=== PATIENT | male | born 1945 | race African-American/Black ===

== ENCOUNTER 2021-03-20 14:45 | Inpatient (IN) | payer OTHER, BC ==
[2021-03-20] MEDS ORDERED: ASPIRIN 81 MG CHEWABLE TABLETS PO ONE (15:48)
[2021-03-20] MEDS ORDERED: ASPIRIN 81 MG CHEWABLE TABLETS ONE (15:52)
[2021-03-20] MEDS ORDERED: HEPARIN NA (PORCINE) 5,000 UNITS/ML 1ML VIAL IVPUSH PRN ×2 (18:04)
[2021-03-20] MEDS ORDERED: HEPARIN NA (PORCINE) 5,000 UNITS/ML 1ML VIAL IVPUSH ONE ×2 (18:04→18:15)
[2021-03-20] MEDS ORDERED: ATORVASTATIN CA 80 MG TABLET (FP) PO ONE (18:04)
[2021-03-20] MEDS ORDERED: CLOPIDOGREL BISULFATE 300 MG TABLET PO ONE (18:04)
[2021-03-20] MEDS ORDERED: CLOPIDOGREL BISULFATE 300 MG TABLET ONE (18:22)
[2021-03-20] MEDS ORDERED: HEPARIN INFUSION - 25,000 UNITS/500 ML INFUS.BAG IVPB ONE (18:23)
[2021-03-20] MEDS ORDERED: HEPARIN NA (PORCINE) 5,000 UNITS/ML 1ML VIAL ONE (18:23)
[2021-03-20] MEDS: HEPARIN - 25,000 UNIT in SODIUM CHLORIDE 495 ML IV SCH (18:23)
[2021-03-20] MEDS ORDERED: ATORVASTATIN CA 80 MG TABLET (FP) ONE (18:23)
[2021-03-20 19:26] LABS: BASO % 0.4 % (0-2.0); EOS % 0.9 % (0-4.5); HEMATOCRIT 42.5 % (35.4-49); LYMPH % 13.1 % (8-40); MCH 29.8 pg (25.7-33.7); MEAN CELL VOLUME 90.5 fl (80-96); MEAN PLT VOLUME 11.3 fl (7.5-11.1); MONO % 4.7 % (3.8-10.2); NEUT % 80.9 % (42.8-82.8); PLATELET COUNT 186 K/MM3 (134-434); RBC 4.69 M/mm3 (4.00-5.60); RDW 15.2 % (11.9-15.9); WHITE BLOOD COUNT 8.4 K/mm3 (4.0-10.0)
[2021-03-20 19:32] LABS: INR 1.03 (0.83-1.09); PROTHROMBIN TIME (PATIENT) 12.6 SEC (9.7-13.0)
[2021-03-20 19:34] LABS: ACTIVATED PTT 30.4 SECONDS (25.2-36.5)
[2021-03-20 19:43] LABS: CHLORIDE 101 mmol/L (98-107); SODIUM 134 mmol/L (136-145)
[2021-03-20 19:45] LABS: CALCIUM 9.2 mg/dL (8.5-10.1)
[2021-03-20 19:46] LABS: ALBUMIN 4.4 g/dl (3.4-5.0); ANION GAP 13 MMOL/L (8-16); BLOOD UREA NITROGEN 28.1 mg/dL (7-18); CO2 20 mmol/L (21-32); GLUCOSE,RANDOM 166 mg/dL (74-106)
[2021-03-20 19:49] LABS: CREATININE 1.4 mg/dL (0.55-1.3); SGOT/AST 21 U/L (15-37); SGPT/ALT 41 U/L (13-61)
[2021-03-20 19:51] LABS: BILIRUBIN,TOTAL 0.8 mg/dL (0.2-1); TOT PROT 7.9 g/dl (6.4-8.2)
[2021-03-20 19:52] LABS: ALK PHOS 90 U/L (45-117)
[2021-03-20] MEDS ORDERED: LORazepam 2 MG/ML SDV VIAL IVPB ONE (20:18)
[2021-03-21 06:23] LABS: BASO % 0.5 % (0-2.0); EOS % 1.8 % (0-4.5); HEMATOCRIT 39.9 % (35.4-49); HEMOGLOBIN 13.3 GM/dL (11.7-16.9); MCH 29.8 pg (25.7-33.7); MCHC 33.3 g/dl (32.0-35.9); MEAN CELL VOLUME 89.4 fl (80-96); MEAN PLT VOLUME 10.1 fl (7.5-11.1); MONO % 7.7 % (3.8-10.2); PLATELET COUNT 169 K/MM3 (134-434); RBC 4.46 M/mm3 (4.00-5.60); RDW 15.3 % (11.9-15.9); WHITE BLOOD COUNT 7.5 K/mm3 (4.0-10.0)
[2021-03-21 06:46] LABS: ALBUMIN 3.8 g/dl (3.4-5.0); BLOOD UREA NITROGEN 23.5 mg/dL (7-18); CALCIUM 8.9 mg/dL (8.5-10.1)
[2021-03-21 06:50] LABS: CREATININE 1.2 mg/dL (0.55-1.3)
[2021-03-21 06:51] LABS: TOT PROT 6.7 g/dl (6.4-8.2)
[2021-03-21] MEDS ORDERED: METOPROLOL TARTRATE 50 MG TABLET (FP) PO SCH (14:00)
[2021-03-21] MEDS: ASPIRIN 81 MG CHEWABLE TABLETS PO SCH (15:10)
[2021-03-21] MEDS: CLOPIDOGREL BISULFATE 75 MG TABLET (FP) PO SCH (15:10)
[2021-03-21] MEDS: METOPROLOL TARTRATE 25 MG TABLET (FP) PO SCH ×2 (15:10→21:16)
[2021-03-21] MEDS: HEPARIN - 25,000 UNIT in SODIUM CHLORIDE 495 ML IV SCH (19:52)
[2021-03-21 20:01] VITALS: BMI 25.4
[2021-03-21] MEDS ORDERED: ATORVASTATIN CA 80 MG TABLET (FP) PO SCH (22:00)
[2021-03-22] MEDS: METOPROLOL TARTRATE 25 MG TABLET (FP) PO SCH ×2 (05:44→14:48)
[2021-03-22 07:44] LABS: BLOOD UREA NITROGEN 27.5 mg/dL (7-18); CALCIUM 9.5 mg/dL (8.5-10.1)
[2021-03-22 07:45] LABS: MAGNESIUM 2.1 mg/dL (1.8-2.4)
[2021-03-22 07:48] LABS: CREATININE 1.4 mg/dL (0.55-1.3)
[2021-03-22] MEDS: ASPIRIN 81 MG CHEWABLE TABLETS PO SCH (10:09)
[2021-03-22] MEDS: CLOPIDOGREL BISULFATE 75 MG TABLET (FP) PO SCH (10:09)
[2021-03-22] MEDS ORDERED: SACUBITRIL/VALSARTAN 24 MG-26 MG TABLET PO SCH (16:15)
[2021-03-22] MEDS ORDERED: INSULIN (NOVOLOG) ASPART 100 UNITS/ML 10ML VIAL SQ SCH (16:30)
[2021-03-22 16:41] LABS: CHOLESTEROL 135 mg/dL (50-200)
[2021-03-22 16:42] LABS: TRIGLYCERIDES 81 mg/dL (0-150)
[2021-03-22 16:43] LABS: LDL CHOLESTEROL (ONLY SJRH) 65 mg/dL (5-100)
[2021-03-22 16:44] LABS: HDL CHOLESTEROL 52 mg/dL (40-60)
[2021-03-22 18:46] VITALS: BP 108/78; PULSE 81; TEMP 97.5
== END 2021-03-22 19:40 | disposition short-term general hospital (02) | DRG 281 ==
LOC: JER 14:45 → JERBED 18:19 → J4S 03-21 09:26
PROVIDERS: ADMIT Hospitalist; ATTEND Internal Medicine
DX: I21.4 Non-ST elevation (NSTEMI) myocardial infarction (principal); N17.9 Acute kidney failure, unspecified; E11.9 Type 2 diabetes mellitus without complications; I10 Essential (primary) hypertension; E78.5 Hyperlipidemia, unspecified; J45.909 Unspecified asthma, uncomplicated; I50.9 Heart failure, unspecified
CPT/HCPCS: 36415; 71045-TC-FY; 71046-TC-FY; 80048; 80053; 80061; 82962; 83721; 83735; 84484; 85025; 85610; 85730; 93005; 93010; 93306-TC; 99285-25; C9803; J1644; U0003; U0005

== ENCOUNTER 2021-04-17 14:10 | Inpatient (IN) | payer OTHER, BC ==
[2021-04-17 15:32] LABS: BASO % 0.3 % (0-2.0); HEMOGLOBIN 12.7 GM/dL (11.7-16.9); LYMPH % 16.6 % (8-40); MCH 28.9 pg (25.7-33.7); MCHC 32.5 g/dl (32.0-35.9); MEAN PLT VOLUME 10.5 fl (7.5-11.1); MONO % 6.9 % (3.8-10.2); NEUT % 71.2 % (42.8-82.8); PLATELET COUNT 124 10^3/uL (134-434); RBC 4.39 M/mm3 (4.00-5.60); RDW 15.7 % (11.9-15.9); WHITE BLOOD COUNT 5.9 K/mm3 (4.0-10.0)
[2021-04-17 15:35] LABS: INR 1.24 (0.83-1.09); PROTHROMBIN TIME (PATIENT) 15.1 SEC (9.7-13.0)
[2021-04-17 15:38] LABS: ACTIVATED PTT 26.5 SECONDS (25.2-36.5)
[2021-04-17 15:48] LABS: CHLORIDE 106 mmol/L (98-107); SODIUM 139 mmol/L (136-145)
[2021-04-17 15:49] LABS: CALCIUM 8.3 mg/dL (8.5-10.1)
[2021-04-17 15:50] LABS: ALBUMIN 3.7 g/dl (3.4-5.0); ANION GAP 11 MMOL/L (8-16); BLOOD UREA NITROGEN 38.8 mg/dL (7-18); CO2 22 mmol/L (21-32); GLUCOSE,RANDOM 173 mg/dL (74-106)
[2021-04-17 15:53] LABS: CREATININE 1.9 mg/dL (0.55-1.3); SGOT/AST 22 U/L (15-37); SGPT/ALT 34 U/L (13-61)
[2021-04-17 15:55] LABS: BILIRUBIN,TOTAL 0.8 mg/dL (0.2-1); TOT PROT 6.5 g/dl (6.4-8.2)
[2021-04-17 15:56] LABS: ALK PHOS 103 U/L (45-117)
[2021-04-17] MEDS ORDERED: ASPIRIN 325 MG TABLET PO ONE (16:12)
[2021-04-17] MEDS ORDERED: ASPIRIN 81 MG CHEWABLE TABLETS ONE (16:23)
[2021-04-17] MEDS ORDERED: CLOPIDOGREL BISULFATE 75 MG TABLET (FP) PO ONE (16:48)
[2021-04-17] MEDS ORDERED: ATORVASTATIN CA 80 MG TABLET (FP) PO ONE (16:48)
[2021-04-17] MEDS ORDERED: LISINOPRIL 5 MG TABLET PO ONE (16:49)
[2021-04-17] MEDS ORDERED: METOPROLOL TARTRATE 25 MG TABLET (FP) PO ONE (16:49)
[2021-04-17] MEDS ORDERED: HEPARIN NA (PORCINE) 5,000 UNITS/ML 1ML VIAL IVPUSH PRN ×2 (16:51)
[2021-04-17] MEDS ORDERED: METOPROLOL TARTRATE 25 MG TABLET (FP) ONE (17:44)
[2021-04-17] MEDS ORDERED: ATORVASTATIN CA 80 MG TABLET (FP) ONE (17:45)
[2021-04-17] MEDS ORDERED: CLOPIDOGREL BISULFATE 75 MG TABLET (FP) ONE (17:45)
[2021-04-17] MEDS ORDERED: HEPARIN INFUSION - 25,000 UNITS/500 ML INFUS.BAG IVPB ONE (17:46)
[2021-04-17] MEDS ORDERED: HEPARIN NA (PORCINE) 5,000 UNITS/ML 1ML VIAL ONE (17:47)
[2021-04-17] MEDS: HEPARIN INFUSION - 25,000 UNITS/500 ML INFUS.BAG IVPB SCH (18:08)
[2021-04-17] MEDS: SACUBITRIL/VALSARTAN 24 MG-26 MG TABLET PO SCH (22:25)
[2021-04-17] MEDS: INSULIN SLIDING SCALE (NOVOLOG) 1 VIAL SQ SCH (23:38)
[2021-04-18 00:19] VITALS: BMI 25.3
[2021-04-18] MEDS: HEPARIN INFUSION - 25,000 UNITS/500 ML INFUS.BAG IVPB SCH (02:00)
[2021-04-18] MEDS: METOPROLOL TARTRATE 25 MG TABLET (FP) PO SCH ×3 (06:26→21:11)
[2021-04-18] MEDS: INSULIN SLIDING SCALE (NOVOLOG) 1 VIAL SQ SCH ×4 (06:26→21:15)
[2021-04-18 07:11] LABS: CHLORIDE 107 mmol/L (98-107); SODIUM 140 mmol/L (136-145)
[2021-04-18 07:15] LABS: ANION GAP 9 MMOL/L (8-16); BLOOD UREA NITROGEN 32.5 mg/dL (7-18); CALCIUM 8.2 mg/dL (8.5-10.1); CO2 24 mmol/L (21-32); MAGNESIUM 1.5 mg/dL (1.8-2.4)
[2021-04-18 07:18] LABS: CHOLESTEROL 76 mg/dL (50-200); PHOSPHOROUS 3.8 mg/dL (2.5-4.9)
[2021-04-18 07:19] LABS: LDL CHOLESTEROL (ONLY SJRH) 36 mg/dL (5-100); TRIGLYCERIDES 55 mg/dL (0-150)
[2021-04-18 07:21] LABS: HDL CHOLESTEROL 33 mg/dL (40-60)
[2021-04-18 07:30] LABS: CREATININE 1.5 mg/dL (0.55-1.3); GLUCOSE,RANDOM 101 mg/dL (74-106)
[2021-04-18] MEDS ORDERED: POTASSIUM CHLORIDE TABS 20 MEQ TABLET.ER (FP) PO ONE (08:34)
[2021-04-18] MEDS ORDERED: PT OWN MED DRAWER 7, Y5N ONE ×3 (09:05→20:26)
[2021-04-18] MEDS: ASPIRIN 81 MG CHEWABLE TABLETS PO SCH (09:28)
[2021-04-18] MEDS: SACUBITRIL/VALSARTAN 24 MG-26 MG TABLET PO SCH ×2 (09:28→21:11)
[2021-04-18] MEDS ORDERED: CLOPIDOGREL BISULFATE 75 MG TABLET (FP) PO SCH (10:00)
[2021-04-18] MEDS ORDERED: FUROSEMIDE 40 MG TABLET (FP) PO SCH (10:30)
[2021-04-18] MEDS: PANTOPRAZOLE SODIUM 40 MG VIAL IVPUSH SCH (12:12)
[2021-04-18] MEDS ORDERED: FUROSEMIDE 40 MG/4 ML INJECTABLE VIAL IVPUSH ONE (12:18)
[2021-04-18 13:58] LABS: EPI CELLS >36 /uL (0-25.1); HYALINE CASTS 7 /uL (0-3.1); PH,URINE 5.5 (5.0-8.0); URINE APPEARANCE CLOUDY; URINE BACTERIA 1 /uL (0-1359); URINE BILIRUBIN NEGATIVE (NEGATIVE); URINE COLOR YELLOW; URINE GLUCOSE (UA) NEGATIVE (NEGATIVE); URINE KETONE TRACE (NEGATIVE); URINE LEUK ESTERASE NEGATIVE (NEGATIVE); URINE NITRITE NEGATIVE (NEGATIVE); URINE PROTEIN 2+ (NEGATIVE); URINE RBC 33 /uL (0-23.9); URINE WBC 19 /uL (0-25.8)
[2021-04-18] MEDS: MAGNESIUM 1GM/D5W - 1 GM/100 ML IVPB IVPB SCH ×2 (14:10→16:23)
[2021-04-18] MEDS ORDERED: MAGNESIUM OXIDE 400 MG TABLET (FP) PO ONE (14:32)
[2021-04-18] MEDS: ATORVASTATIN CA 80 MG TABLET (FP) PO SCH (21:11)
[2021-04-19] MEDS: METOPROLOL TARTRATE 25 MG TABLET (FP) PO SCH (06:17)
[2021-04-19] MEDS: INSULIN SLIDING SCALE (NOVOLOG) 1 VIAL SQ SCH ×4 (06:17→21:39)
[2021-04-19] MEDS ORDERED: PT OWN MED DRAWER 7, Y5N ONE ×2 (09:20→21:17)
[2021-04-19] MEDS: SACUBITRIL/VALSARTAN 24 MG-26 MG TABLET PO SCH ×2 (09:24→21:39)
[2021-04-19] MEDS: PANTOPRAZOLE SODIUM 40 MG VIAL IVPUSH SCH (09:25)
[2021-04-19] MEDS: ASPIRIN 81 MG CHEWABLE TABLETS PO SCH (09:25)
[2021-04-19] MEDS: FUROSEMIDE 40 MG/4 ML INJECTABLE VIAL IVPUSH SCH (09:25)
[2021-04-19 10:19] LABS: BASO % 1.3 % (0-2.0); EOS % 7.4 % (0-4.5); HEMATOCRIT 42.3 % (35.4-49); HEMOGLOBIN 13.4 GM/dL (11.7-16.9); LYMPH % 22.9 % (8-40); MCH 28.3 pg (25.7-33.7); MCHC 31.6 g/dl (32.0-35.9); MEAN CELL VOLUME 89.6 fl (80-96); MEAN PLT VOLUME 10.9 fl (7.5-11.1); MONO % 8.4 % (3.8-10.2); PLATELET COUNT 130 10^3/uL (134-434); RBC 4.72 M/mm3 (4.00-5.60); RDW 15.8 % (11.9-15.9); WHITE BLOOD COUNT 7.5 K/mm3 (4.0-10.0)
[2021-04-19] MEDS: APIXABAN 5 MG TABLET PO SCH ×2 (10:39→21:38)
[2021-04-19 11:27] LABS: ALBUMIN 3.5 g/dl (3.4-5.0); CALCIUM 8.6 mg/dL (8.5-10.1)
[2021-04-19 11:28] LABS: BLOOD UREA NITROGEN 25.6 mg/dL (7-18); MAGNESIUM 1.9 mg/dL (1.8-2.4)
[2021-04-19 11:31] LABS: CREATININE 1.6 mg/dL (0.55-1.3)
[2021-04-19 11:32] LABS: TOT PROT 6.5 g/dl (6.4-8.2)
[2021-04-19] MEDS: ATORVASTATIN CA 80 MG TABLET (FP) PO SCH (21:38)
[2021-04-20] MEDS: INSULIN SLIDING SCALE (NOVOLOG) 1 VIAL SQ SCH ×2 (06:05→11:40)
[2021-04-20 08:13] LABS: HEMATOCRIT 46.1 % (35.4-49); HEMOGLOBIN 14.6 GM/dL (11.7-16.9); MCH 28.2 pg (25.7-33.7); MCHC 31.6 g/dl (32.0-35.9); MEAN CELL VOLUME 89.2 fl (80-96); MEAN PLT VOLUME 10.9 fl (7.5-11.1); PLATELET COUNT 133 10^3/uL (134-434); RBC 5.17 M/mm3 (4.00-5.60); RDW 15.7 % (11.9-15.9); WHITE BLOOD COUNT 7.5 K/mm3 (4.0-10.0)
[2021-04-20 08:15] LABS: BASO % 0.7 % (0-2.0); EOS % 11.1 % (0-4.5); HEMATOCRIT 46.2 % (35.4-49); HEMOGLOBIN 14.6 GM/dL (11.7-16.9); LYMPH % 29.5 % (8-40); MCH 28.4 pg (25.7-33.7); MCHC 31.6 g/dl (32.0-35.9); MEAN CELL VOLUME 89.8 fl (80-96); MEAN PLT VOLUME 11.2 fl (7.5-11.1); MONO % 8.9 % (3.8-10.2); NEUT % 49.8 % (42.8-82.8); PLATELET COUNT 138 10^3/uL (134-434); RBC 5.14 M/mm3 (4.00-5.60); RDW 15.9 % (11.9-15.9); WHITE BLOOD COUNT 7.7 K/mm3 (4.0-10.0)
[2021-04-20 08:46] LABS: ALBUMIN 3.5 g/dl (3.4-5.0)
[2021-04-20 08:47] LABS: CALCIUM 8.8 mg/dL (8.5-10.1)
[2021-04-20 08:48] LABS: MAGNESIUM 1.9 mg/dL (1.8-2.4)
[2021-04-20 08:49] LABS: CREATININE 1.5 mg/dL (0.55-1.3)
[2021-04-20 08:51] LABS: BILIRUBIN,TOTAL 0.9 mg/dL (0.2-1); TOT PROT 6.3 g/dl (6.4-8.2)
[2021-04-20 09:49] VITALS: BP 122/77; PULSE 67; TEMP 98.4
[2021-04-20] MEDS: APIXABAN 5 MG TABLET PO SCH (09:50)
[2021-04-20] MEDS: ASPIRIN 81 MG CHEWABLE TABLETS PO SCH (09:50)
[2021-04-20] MEDS: FUROSEMIDE 40 MG/4 ML INJECTABLE VIAL IVPUSH SCH (09:51)
[2021-04-20] MEDS: SACUBITRIL/VALSARTAN 24 MG-26 MG TABLET PO SCH (09:51)
[2021-04-20] MEDS: PANTOPRAZOLE SODIUM 40 MG VIAL IVPUSH SCH (09:51)
== END 2021-04-20 13:40 | disposition home or self-care (01) | DRG 280 ==
LOC: JER 14:10 → JERBED 17:19 → J4W 23:27
PROVIDERS: ADMIT Internal Medicine; ATTEND Internal Medicine
DX: I13.0 Hypertensive heart and chronic kidney disease with heart failure and stage 1 through stage 4 chronic kidney disease, or unspecified chronic kidney disease (principal); I21.4 Non-ST elevation (NSTEMI) myocardial infarction; I50.23 Acute on chronic systolic (congestive) heart failure; N17.9 Acute kidney failure, unspecified; I48.92 Unspecified atrial flutter; E78.5 Hyperlipidemia, unspecified; J45.909 Unspecified asthma, uncomplicated; I25.10 Atherosclerotic heart disease of native coronary artery without angina pectoris; J44.9 Chronic obstructive pulmonary disease, unspecified; N18.9 Chronic kidney disease, unspecified; E11.22 Type 2 diabetes mellitus with diabetic chronic kidney disease; Z79.84 Long term (current) use of oral hypoglycemic drugs; Z91.14 Patient's other noncompliance with medication regimen
CPT/HCPCS: 36415; 71045-TC-FY; 76775-TC; 80048; 80053; 80061; 81003; 82436; 82550; 82553; 82570; 82962; 83036; 83721; 83735; 83880; 84100; 84133; 84300; 84443; 84484; 84540; 85025; 85027; 85610; 85730; 87086; 93005; 93010; 93306-TC; 93971-RT; 99285-25; C9803; J1644; U0003; U0005

== ENCOUNTER 2021-07-11 18:41 | Inpatient (IN) | payer OTHER, BC ==
[2021-07-11] MEDS ORDERED: SODIUM CHLORIDE 0.9% 500 ML INFUS.BAG IV ONE (20:46)
[2021-07-11 21:10] LABS: BASO % 0.4 % (0-2.0); EOS % 2.6 % (0-4.5); HEMATOCRIT 42.1 % (35.4-49); HEMOGLOBIN 13.9 GM/dL (11.7-16.9); LYMPH % 11.5 % (8-40); MCH 29.2 pg (25.7-33.7); MCHC 33.1 g/dl (32.0-35.9); MEAN CELL VOLUME 88.1 fl (80-96); MEAN PLT VOLUME 9.9 fl (7.5-11.1); MONO % 7.7 % (3.8-10.2); NEUT % 77.8 % (42.8-82.8); PLATELET COUNT 183 10^3/uL (134-434); RBC 4.78 M/mm3 (4.00-5.60); RDW 18.8 % (11.9-15.9); WHITE BLOOD COUNT 9.3 K/mm3 (4.0-10.0)
[2021-07-11 21:15] LABS: INR 1.02 (0.83-1.09); PROTHROMBIN TIME (PATIENT) 12.6 SEC (9.7-13.0)
[2021-07-11 21:18] LABS: ACTIVATED PTT 31.3 SECONDS (25.2-36.5)
[2021-07-11 21:21] LABS: CHLORIDE 94 mmol/L (98-107); SODIUM 128 mmol/L (136-145)
[2021-07-11 21:24] LABS: ALBUMIN 2.6 g/dl (3.4-5.0); BLOOD UREA NITROGEN 26.6 mg/dL (7-18); CALCIUM 8.8 mg/dL (8.5-10.1); CO2 27 mmol/L (21-32); GLUCOSE,RANDOM 317 mg/dL (74-106)
[2021-07-11 21:27] LABS: CREATININE 1.4 mg/dL (0.55-1.3); SGOT/AST 75 U/L (15-37); SGPT/ALT 130 U/L (13-61)
[2021-07-11 21:29] LABS: BILIRUBIN,TOTAL 1.8 mg/dL (0.2-1); TOT PROT 7.4 g/dl (6.4-8.2)
[2021-07-11 21:30] LABS: ALK PHOS 238 U/L (45-117)
[2021-07-11 21:32] LABS: N-TERMINAL BNP 32778.5 pg/ml (5-450)
[2021-07-11 21:38] LABS: PH,URINE 6.5 (5.0-8.0); URINE APPEARANCE CLEAR; URINE BILIRUBIN NEGATIVE (NEGATIVE); URINE COLOR YELLOW; URINE GLUCOSE (UA) 2+ (NEGATIVE); URINE KETONE NEGATIVE (NEGATIVE); URINE LEUK ESTERASE NEGATIVE (NEGATIVE); URINE NITRITE NEGATIVE (NEGATIVE); URINE PROTEIN TRACE (NEGATIVE)
[2021-07-11 22:00] LABS: ANION GAP 8 MMOL/L (8-16)
[2021-07-11 22:14] LABS: BLOOD UREA NITROGEN 26.1 mg/dL (7-18)
[2021-07-11 22:17] LABS: CREATININE 1.3 mg/dL (0.55-1.3)
[2021-07-12] MEDS ORDERED: VANCOMYCIN 1 GM in D5W (PRE-DOCKED) 1,000 MG/250 ML IVPB ONE (00:30)
[2021-07-12] MEDS ORDERED: PIPERACILLIN/TAZOB 3.375 GM 3.375 GM in DEXTROSE 5%-WATER - 50 ML IVPB ONE (00:30)
[2021-07-12] MEDS ORDERED: VANCOMYCIN 1 GRAM (PRE-DOCKED) 1,000 MG/250 ML BAG IVPB ONE (00:31)
[2021-07-12] MEDS ORDERED: PIPERACILLIN/TAZOB 3.375 GM 3.375 GM/50 ML BAG IVPB ONE (00:32)
[2021-07-12] MEDS ORDERED: FAMOTIDINE 20 MG TABLET PO ONE (03:05)
[2021-07-12] MEDS ORDERED: ROSUVASTATIN CA 10 MG TABLET (FP) PO ONE (03:05)
[2021-07-12] MEDS ORDERED: FAMOTIDINE 20 MG TABLET ONE (03:24)
[2021-07-12 05:08] VITALS: BMI 21.7
[2021-07-12] MEDS ORDERED: DEXTROSE 5%-WATER - 50 ML IVPB ONE ×3 (05:46→18:36)
[2021-07-12] MEDS ORDERED: PIPERACILLIN/TAZOBACTAM 3.375 GM VIAL IVPB ONE ×3 (05:46→18:36)
[2021-07-12] MEDS ORDERED: PIPERACILLIN/TAZOB 3.375 GM 3.375 GM in DEXTROSE 5%-WATER - 50 ML IVPB SCH ×2 (06:00→14:00)
[2021-07-12] MEDS: PIPERACILLIN/TAZOB 3.375 GM 3.375 GM in DEXTROSE 5%-WATER - 50 ML IVPB SCH ×3 (06:19→18:39)
[2021-07-12] MEDS: INSULIN SLIDING SCALE (NOVOLOG) 1 VIAL SQ SCH ×4 (06:25→21:15)
[2021-07-12] MEDS ORDERED: INSULIN (NOVOLOG) ASPART 100 UNITS/ML 10ML VIAL ONE ×2 (06:40→10:54)
[2021-07-12 07:19] LABS: BASO % 0.7 % (0-2.0); EOS % 4.3 % (0-4.5); HEMATOCRIT 42.3 % (35.4-49); LYMPH % 12.4 % (8-40); MCH 29.1 pg (25.7-33.7); MCHC 33.1 g/dl (32.0-35.9); MEAN CELL VOLUME 88.1 fl (80-96); MONO % 6.8 % (3.8-10.2); NEUT % 75.8 % (42.8-82.8); PLATELET COUNT 174 10^3/uL (134-434); RDW 18.2 % (11.9-15.9); WHITE BLOOD COUNT 10.1 K/mm3 (4.0-10.0)
[2021-07-12 07:29] LABS: ALBUMIN 2.5 g/dl (3.4-5.0); BLOOD UREA NITROGEN 24.2 mg/dL (7-18); CALCIUM 8.7 mg/dL (8.5-10.1)
[2021-07-12 07:30] LABS: MAGNESIUM 1.9 mg/dL (1.8-2.4)
[2021-07-12 07:33] LABS: CREATININE 1.3 mg/dL (0.55-1.3); PHOSPHOROUS 3.2 mg/dL (2.5-4.9)
[2021-07-12 07:34] LABS: BILIRUBIN,TOTAL 1.7 mg/dL (0.2-1); TOT PROT 6.6 g/dl (6.4-8.2)
[2021-07-12 08:05] LABS: INR 1.01 (0.83-1.09); PROTHROMBIN TIME (PATIENT) 12.4 SEC (9.7-13.0)
[2021-07-12] MEDS ORDERED: PROMETHAZINE HCL 25 MG/1 ML VIAL IVPB PRN (09:11)
[2021-07-12] MEDS ORDERED: VANCOMYCIN 1 GRAM (PRE-DOCKED) 1,000 MG/250 ML BAG IVPB SCH (10:00)
[2021-07-12] MEDS ORDERED: VANCOMYCIN 1 GM in D5W (PRE-DOCKED) 1,000 MG/250 ML IVPB SCH (10:00)
[2021-07-12] MEDS ORDERED: ENOXAPARIN NA (PORCINE) 40 MG/0.4 ML DISP.SYRIN SQ SCH (10:00)
[2021-07-12] MEDS: APIXABAN 5 MG TABLET PO SCH ×3 (11:01→21:12)
[2021-07-12] MEDS: FAMOTIDINE 20 MG TABLET PO SCH (11:01)
[2021-07-12] MEDS: AZITHROMYCIN IVPB 500 MG/250 ML BAG IVPB SCH (15:26)
[2021-07-12] MEDS: ROSUVASTATIN CA 5 MG TABLET (FP) PO SCH (21:12)
[2021-07-12] MEDS ORDERED: INSULIN (LEVEMIR) 100 UNITS/ML UNITS SQ SCH (22:00)
[2021-07-13] MEDS ORDERED: PIPERACILLIN/TAZOBACTAM 3.375 GM VIAL IVPB ONE ×3 (01:17→18:15)
[2021-07-13] MEDS ORDERED: DEXTROSE 5%-WATER - 50 ML IVPB ONE ×3 (01:17→18:15)
[2021-07-13] MEDS: PIPERACILLIN/TAZOB 3.375 GM 3.375 GM in DEXTROSE 5%-WATER - 50 ML IVPB SCH ×3 (01:25→18:18)
[2021-07-13] MEDS: INSULIN SLIDING SCALE (NOVOLOG) 1 VIAL SQ SCH ×4 (05:59→22:19)
[2021-07-13] MEDS: APIXABAN 5 MG TABLET PO SCH ×2 (10:34→22:13)
[2021-07-13] MEDS: FAMOTIDINE 20 MG TABLET PO SCH (10:35)
[2021-07-13 10:58] LABS: BASO % 0.6 % (0-2.0); EOS % 6.3 % (0-4.5); HEMATOCRIT 46.9 % (35.4-49); HEMOGLOBIN 15.6 GM/dL (11.7-16.9); LYMPH % 14.9 % (8-40); MCH 29.5 pg (25.7-33.7); MCHC 33.2 g/dl (32.0-35.9); MEAN CELL VOLUME 88.9 fl (80-96); MONO % 6.1 % (3.8-10.2); NEUT % 72.1 % (42.8-82.8); PLATELET COUNT 189 10^3/uL (134-434); RBC 5.28 M/mm3 (4.00-5.60); RDW 18.4 % (11.9-15.9); WHITE BLOOD COUNT 9.3 K/mm3 (4.0-10.0)
[2021-07-13] MEDS: AZITHROMYCIN IVPB 500 MG/250 ML BAG IVPB SCH (11:11)
[2021-07-13 11:23] LABS: ALBUMIN 2.8 g/dl (3.4-5.0); BLOOD UREA NITROGEN 23.3 mg/dL (7-18); CALCIUM 8.9 mg/dL (8.5-10.1)
[2021-07-13 11:27] LABS: CREATININE 1.2 mg/dL (0.55-1.3)
[2021-07-13 11:28] LABS: BILIRUBIN,TOTAL 1.6 mg/dL (0.2-1); TOT PROT 7.2 g/dl (6.4-8.2)
[2021-07-13] MEDS ORDERED: INSULIN (LEVEMIR) 100 UNITS/ML UNITS SQ SCH (12:06)
[2021-07-13 12:17] LABS: HIV INTERPRETATION NEGATIVE (NEGATIVE)
[2021-07-13] MEDS ORDERED: LISINOPRIL 5 MG TABLET PO SCH (15:00)
[2021-07-13] MEDS: FUROSEMIDE 20 MG TABLET (FP) PO SCH (16:27)
[2021-07-13] MEDS: metoPROLOL SUCCINATE 25 MG TAB.SR.24H (FP) PO SCH (16:53)
[2021-07-13] MEDS: ASPIRIN COATED 81 MG TABLET.EC PO SCH (16:53)
[2021-07-13] MEDS ORDERED: INSULIN (NOVOLOG) ASPART 100 UNITS/ML 10ML VIAL ONE (22:04)
[2021-07-13] MEDS: SACUBITRIL/VALSARTAN 24 MG-26 MG TABLET PO SCH (22:13)
[2021-07-13] MEDS: ROSUVASTATIN CA 5 MG TABLET (FP) PO SCH (22:13)
[2021-07-14] MEDS ORDERED: PIPERACILLIN/TAZOBACTAM 3.375 GM VIAL IVPB ONE ×3 (01:31→18:02)
[2021-07-14] MEDS: PIPERACILLIN/TAZOB 3.375 GM 3.375 GM in DEXTROSE 5%-WATER - 50 ML IVPB SCH ×3 (01:32→18:10)
[2021-07-14] MEDS: INSULIN SLIDING SCALE (NOVOLOG) 1 VIAL SQ SCH ×4 (06:35→21:15)
[2021-07-14] MEDS ORDERED: PT OWN MED DRAWER 7, Y5N ONE (09:31)
[2021-07-14] MEDS ORDERED: DEXTROSE 5%-WATER - 50 ML IVPB ONE ×2 (09:31→18:02)
[2021-07-14] MEDS: SACUBITRIL/VALSARTAN 24 MG-26 MG TABLET PO SCH ×3 (09:40→21:11)
[2021-07-14] MEDS: FAMOTIDINE 20 MG TABLET PO SCH (09:40)
[2021-07-14] MEDS: metoPROLOL SUCCINATE 25 MG TAB.SR.24H (FP) PO SCH (09:41)
[2021-07-14] MEDS: APIXABAN 5 MG TABLET PO SCH ×2 (09:41→21:11)
[2021-07-14] MEDS: ASPIRIN COATED 81 MG TABLET.EC PO SCH (09:41)
[2021-07-14] MEDS: FUROSEMIDE 20 MG TABLET (FP) PO SCH ×2 (09:43→09:59)
[2021-07-14] MEDS: ROSUVASTATIN CA 5 MG TABLET (FP) PO SCH (21:11)
[2021-07-14] MEDS: INSULIN (LEVEMIR) 100 UNITS/ML UNITS SQ SCH (21:14)
[2021-07-15] MEDS ORDERED: PIPERACILLIN/TAZOBACTAM 3.375 GM VIAL IVPB ONE ×3 (01:38→17:46)
[2021-07-15] MEDS ORDERED: DEXTROSE 5%-WATER - 50 ML IVPB ONE ×3 (01:38→17:46)
[2021-07-15] MEDS: PIPERACILLIN/TAZOB 3.375 GM 3.375 GM in DEXTROSE 5%-WATER - 50 ML IVPB SCH ×3 (01:43→17:55)
[2021-07-15] MEDS: INSULIN SLIDING SCALE (NOVOLOG) 1 VIAL SQ SCH ×4 (06:00→21:32)
[2021-07-15] MEDS: FAMOTIDINE 20 MG TABLET PO SCH (10:14)
[2021-07-15] MEDS: APIXABAN 5 MG TABLET PO SCH ×2 (10:14→21:31)
[2021-07-15] MEDS: ASPIRIN COATED 81 MG TABLET.EC PO SCH (10:15)
[2021-07-15] MEDS: SACUBITRIL/VALSARTAN 24 MG-26 MG TABLET PO SCH ×2 (10:27→21:31)
[2021-07-15] MEDS: metoPROLOL SUCCINATE 25 MG TAB.SR.24H (FP) PO SCH (10:27)
[2021-07-15] MEDS: FUROSEMIDE 20 MG TABLET (FP) PO SCH (10:27)
[2021-07-15] MEDS ORDERED: PT OWN MED DRAWER 7, Y5N ONE (21:21)
[2021-07-15] MEDS: ROSUVASTATIN CA 5 MG TABLET (FP) PO SCH (21:31)
[2021-07-15] MEDS: INSULIN (LEVEMIR) 100 UNITS/ML UNITS SQ SCH (21:32)
[2021-07-16] MEDS ORDERED: DEXTROSE 5%-WATER - 50 ML IVPB ONE ×3 (01:03→17:47)
[2021-07-16] MEDS ORDERED: PIPERACILLIN/TAZOBACTAM 3.375 GM VIAL IVPB ONE ×3 (01:03→17:47)
[2021-07-16] MEDS: PIPERACILLIN/TAZOB 3.375 GM 3.375 GM in DEXTROSE 5%-WATER - 50 ML IVPB SCH ×3 (02:35→17:53)
[2021-07-16] MEDS: INSULIN SLIDING SCALE (NOVOLOG) 1 VIAL SQ SCH ×4 (07:13→22:18)
[2021-07-16] MEDS: FAMOTIDINE 20 MG TABLET PO SCH (09:12)
[2021-07-16] MEDS: metoPROLOL SUCCINATE 25 MG TAB.SR.24H (FP) PO SCH (09:12)
[2021-07-16] MEDS: FUROSEMIDE 20 MG TABLET (FP) PO SCH (09:12)
[2021-07-16] MEDS: ASPIRIN COATED 81 MG TABLET.EC PO SCH (09:12)
[2021-07-16] MEDS: APIXABAN 5 MG TABLET PO SCH ×2 (09:13→22:18)
[2021-07-16] MEDS: SACUBITRIL/VALSARTAN 24 MG-26 MG TABLET PO SCH ×2 (09:17→22:18)
[2021-07-16 09:50] LABS: LDH 212 U/L (87-246)
[2021-07-16] MEDS ORDERED: INSULIN (NOVOLOG) ASPART 100 UNITS/ML 10ML VIAL ONE (21:32)
[2021-07-16] MEDS ORDERED: PT OWN MED DRAWER 7, Y5N ONE (21:33)
[2021-07-16] MEDS: INSULIN (LEVEMIR) 100 UNITS/ML UNITS SQ SCH (22:18)
[2021-07-16] MEDS: ROSUVASTATIN CA 5 MG TABLET (FP) PO SCH (22:18)
[2021-07-17] MEDS ORDERED: PIPERACILLIN/TAZOBACTAM 3.375 GM VIAL IVPB ONE ×3 (01:19→17:28)
[2021-07-17] MEDS ORDERED: DEXTROSE 5%-WATER - 50 ML IVPB ONE ×3 (01:19→17:28)
[2021-07-17] MEDS: PIPERACILLIN/TAZOB 3.375 GM 3.375 GM in DEXTROSE 5%-WATER - 50 ML IVPB SCH ×3 (01:25→17:36)
[2021-07-17] MEDS: INSULIN SLIDING SCALE (NOVOLOG) 1 VIAL SQ SCH ×4 (06:28→21:23)
[2021-07-17 07:11] LABS: IGA IMMUNOGLOBULIN 398 mg/dL (61-437); IGG QN IMMUNOGLOBULIN 1374 mg/dL (603-1613); IGM QN SERUM 54 mg/dL (15-143)
[2021-07-17] MEDS ORDERED: PT OWN MED DRAWER 7, Y5N ONE ×2 (08:53→21:02)
[2021-07-17] MEDS: FAMOTIDINE 20 MG TABLET PO SCH (09:34)
[2021-07-17] MEDS: SACUBITRIL/VALSARTAN 24 MG-26 MG TABLET PO SCH ×3 (09:34→21:25)
[2021-07-17] MEDS: ASPIRIN COATED 81 MG TABLET.EC PO SCH (09:34)
[2021-07-17] MEDS: FUROSEMIDE 20 MG TABLET (FP) PO SCH (09:34)
[2021-07-17] MEDS: APIXABAN 5 MG TABLET PO SCH ×2 (09:34→21:18)
[2021-07-17] MEDS: metoPROLOL SUCCINATE 25 MG TAB.SR.24H (FP) PO SCH ×2 (09:35→10:21)
[2021-07-17] MEDS ORDERED: SPIRONOLACTONE 25 MG TABLET PO SCH (10:00)
[2021-07-17] MEDS: SPIRONOLACTONE 25 MG TABLET PO SCH (11:19)
[2021-07-17 17:08] LABS: FREE KAPPA,SERUM 44.1 mg/L (3.3-19.4)
[2021-07-17] MEDS ORDERED: INSULIN (NOVOLOG) ASPART 100 UNITS/ML 10ML VIAL ONE (17:35)
[2021-07-17] MEDS: ROSUVASTATIN CA 5 MG TABLET (FP) PO SCH (21:18)
[2021-07-17] MEDS: INSULIN (LEVEMIR) 100 UNITS/ML UNITS SQ SCH (21:21)
[2021-07-18] MEDS ORDERED: DEXTROSE 5%-WATER - 50 ML IVPB ONE ×3 (01:55→10:58)
[2021-07-18] MEDS ORDERED: PIPERACILLIN/TAZOBACTAM 3.375 GM VIAL IVPB ONE ×3 (01:55→10:58)
[2021-07-18] MEDS ORDERED: PT OWN MED DRAWER 7, Y5N ONE ×2 (01:57→11:18)
[2021-07-18] MEDS: PIPERACILLIN/TAZOB 3.375 GM 3.375 GM in DEXTROSE 5%-WATER - 50 ML IVPB SCH ×2 (02:16→10:29)
[2021-07-18] MEDS: INSULIN SLIDING SCALE (NOVOLOG) 1 VIAL SQ SCH ×2 (06:06→11:28)
[2021-07-18 08:52] LABS: BASO % 0.7 % (0-2.0); EOS % 10.9 % (0-4.5); HEMATOCRIT 37.5 % (35.4-49); HEMOGLOBIN 12.4 GM/dL (11.7-16.9); LYMPH % 21.7 % (8-40); MCH 29.1 pg (25.7-33.7); MCHC 33.1 g/dl (32.0-35.9); MEAN CELL VOLUME 87.8 fl (80-96); MONO % 8.8 % (3.8-10.2); NEUT % 57.9 % (42.8-82.8); PLATELET COUNT 172 10^3/uL (134-434); RBC 4.27 M/mm3 (4.00-5.60); RDW 18.4 % (11.9-15.9); WHITE BLOOD COUNT 8.2 K/mm3 (4.0-10.0)
[2021-07-18 09:05] LABS: CALCIUM 7.9 mg/dL (8.5-10.1)
[2021-07-18 09:06] LABS: ALBUMIN 2.3 g/dl (3.4-5.0); BLOOD UREA NITROGEN 14.7 mg/dL (7-18)
[2021-07-18 09:09] LABS: CREATININE 1.1 mg/dL (0.55-1.3)
[2021-07-18 09:10] LABS: BILIRUBIN,TOTAL 0.9 mg/dL (0.2-1)
[2021-07-18] MEDS: ASPIRIN COATED 81 MG TABLET.EC PO SCH (11:23)
[2021-07-18] MEDS: FAMOTIDINE 20 MG TABLET PO SCH (11:23)
[2021-07-18] MEDS: FUROSEMIDE 20 MG TABLET (FP) PO SCH (11:23)
[2021-07-18] MEDS: SPIRONOLACTONE 25 MG TABLET PO SCH (11:23)
[2021-07-18] MEDS: APIXABAN 5 MG TABLET PO SCH (11:23)
[2021-07-18] MEDS: SACUBITRIL/VALSARTAN 24 MG-26 MG TABLET PO SCH (11:24)
[2021-07-18] MEDS: metoPROLOL SUCCINATE 25 MG TAB.SR.24H (FP) PO SCH (11:24)
[2021-07-18 14:46] VITALS: BP 92/61; PULSE 83; TEMP 97.6
[2021-07-18] MEDS ORDERED: AMOX TR/POT CLAV 875MG/125MG TABLETS (FP) PO SCH (17:30)
== END 2021-07-18 17:36 | disposition home or self-care (01) | DRG 291 ==
LOC: JER 18:41 → JERBED 07-12 00:31 → MERGE 07-12 00:31 → J6S 07-12 04:37
PROVIDERS: ADMIT Internal Medicine; ATTEND Internal Medicine
DX: I13.0 Hypertensive heart and chronic kidney disease with heart failure and stage 1 through stage 4 chronic kidney disease, or unspecified chronic kidney disease (principal); J18.9 Pneumonia, unspecified organism; I50.23 Acute on chronic systolic (congestive) heart failure; E87.1 Hypo-osmolality and hyponatremia; N18.9 Chronic kidney disease, unspecified; R62.7 Adult failure to thrive; I48.91 Unspecified atrial fibrillation; E78.5 Hyperlipidemia, unspecified; R63.4 Abnormal weight loss; Z68.21 Body mass index [BMI] 21.0-21.9, adult; I25.10 Atherosclerotic heart disease of native coronary artery without angina pectoris
CPT/HCPCS: 36415; 70450-TC; 71045-TC-FY; 71250-TC; 74176-TC; 80048; 80053; 81003; 82550; 82553; 82607; 82746; 82784; 82962; 83036; 83615; 83735; 83880; 83883; 84100; 84155; 84165; 84425; 84484; 85025; 85610; 85651; 85730; 86038; 86140; 86334; 86431; 86480; 87040; 87086; 87389; 87899; 93005; 93010; 93970-TC; 94010; 97116-GP; 97162-GP; 99291; C9803; U0003; U0005

== ENCOUNTER 2021-08-27 16:34 | Inpatient (IN) | payer OTHER, BC ==
[2021-08-27] MEDS ORDERED: ACETAMINOPHEN 1000 MG/100 ML BAG IVPB ONE (20:19)
[2021-08-27] MEDS ORDERED: PIPERACILLIN/TAZOB 4.5 GM 4.5 GM in DEXTROSE 5%-WATER 100 ML IVPB ONE (20:19)
[2021-08-27] MEDS ORDERED: VANCOMYCIN 1 GM in D5W (PRE-DOCKED) 1,000 MG/250 ML IVPB ONE (20:19)
[2021-08-27 21:01] LABS: BASO % 0.4 % (0-2.0); HEMATOCRIT 35.7 % (35.4-49); HEMOGLOBIN 11.9 GM/dL (11.7-16.9); LYMPH % 5.9 % (8-40); MCH 29.3 pg (25.7-33.7); MCHC 33.3 g/dl (32.0-35.9); MEAN CELL VOLUME 87.8 fl (80-96); MEAN PLT VOLUME 8.8 fl (7.5-11.1); MONO % 6.9 % (3.8-10.2); NEUT % 86.8 % (42.8-82.8); PLATELET COUNT 216 10^3/uL (134-434); RBC 4.06 M/mm3 (4.00-5.60); RDW 17.9 % (11.9-15.9); WHITE BLOOD COUNT 14.3 K/mm3 (4.0-10.0)
[2021-08-27 21:08] LABS: INR 1.94 (0.83-1.09); PROTHROMBIN TIME (PATIENT) 21.9 SEC (9.7-13.0)
[2021-08-27 21:11] LABS: ACTIVATED PTT 33.7 SECONDS (25.2-36.5)
[2021-08-27 21:18] LABS: ALBUMIN 2.5 g/dl (3.4-5.0); BLOOD UREA NITROGEN 16.7 mg/dL (7-18); CALCIUM 8.6 mg/dL (8.5-10.1)
[2021-08-27] MEDS ORDERED: VANCOMYCIN 1 GRAM (PRE-DOCKED) 1,000 MG/250 ML BAG IVPB ONE (21:20)
[2021-08-27] MEDS ORDERED: PIPERACILLIN/TAZOB 4.5 GM 4.5 GM/100 ML BAG IVPB ONE (21:20)
[2021-08-27 21:22] LABS: CREATININE 1.2 mg/dL (0.55-1.3)
[2021-08-27 21:23] LABS: BILIRUBIN,TOTAL 1.7 mg/dL (0.2-1)
[2021-08-27] MEDS ORDERED: ACETAMINOPHEN INJECTION 100 ML IVPB ONE (21:37)
[2021-08-28] MEDS: INSULIN SLIDING SCALE (NOVOLOG) 1 VIAL SQ SCH ×4 (06:35→21:50)
[2021-08-28] MEDS ORDERED: POVIDONE-IODINE 10% SOLN 118 ML BOTTLE TP ONE (09:04)
[2021-08-28 09:39] LABS: BASO % 0.3 % (0-2.0); EOS % 0.5 % (0-4.5); HEMATOCRIT 36.6 % (35.4-49); HEMOGLOBIN 11.9 GM/dL (11.7-16.9); LYMPH % 7.4 % (8-40); MCH 29.5 pg (25.7-33.7); MCHC 32.6 g/dl (32.0-35.9); MEAN CELL VOLUME 90.5 fl (80-96); MEAN PLT VOLUME 9.8 fl (7.5-11.1); MONO % 5.6 % (3.8-10.2); NEUT % 86.2 % (42.8-82.8); PLATELET COUNT 225 10^3/uL (134-434); RBC 4.04 M/mm3 (4.00-5.60); RDW 18.4 % (11.9-15.9)
[2021-08-28] MEDS ORDERED: PIPERACILLIN/TAZOB 4.5 GM 4.5 GM in DEXTROSE 5%-WATER 100 ML IVPB SCH (10:00)
[2021-08-28] MEDS ORDERED: VANCOMYCIN 1 GRAM (PRE-DOCKED) 1,000 MG/250 ML BAG IVPB SCH (10:00)
[2021-08-28] MEDS ORDERED: DEXTROSE 5%-WATER 100 ML IVPB ONE (10:01)
[2021-08-28] MEDS ORDERED: PIPERACILLIN/TAZOBACTAM 4.5 GM VIAL IVPB ONE (10:01)
[2021-08-28] MEDS ORDERED: INSULIN SLIDING SCALE (NOVOLOG) 1 VIAL SQ ONE (10:01)
[2021-08-28 10:09] LABS: CALCIUM 8.8 mg/dL (8.5-10.1)
[2021-08-28 10:10] LABS: BLOOD UREA NITROGEN 14.2 mg/dL (7-18)
[2021-08-28 10:13] LABS: CREATININE 1.2 mg/dL (0.55-1.3)
[2021-08-28] MEDS: VANCOMYCIN 1 GRAM (PRE-DOCKED) 1,000 MG/250 ML BAG IVPB SCH (14:02)
[2021-08-28] MEDS: HEPARIN NA (PORCINE) 5,000 UNITS/ML 1ML VIAL SQ SCH ×2 (14:05→21:44)
[2021-08-28] MEDS ORDERED: PIPERACILLIN/TAZOBACTAM 3.375 GM VIAL IVPB ONE (17:24)
[2021-08-28] MEDS ORDERED: DEXTROSE 5%-WATER - 50 ML IVPB ONE (17:24)
[2021-08-28] MEDS: PIPERACILLIN/TAZOB 3.375 GM 3.375 GM in DEXTROSE 5%-WATER - 50 ML IVPB SCH (18:16)
[2021-08-28] MEDS ORDERED: APIXABAN 5 MG TABLET PO SCH (22:00)
[2021-08-29] MEDS ORDERED: DEXTROSE 5%-WATER - 50 ML IVPB ONE ×3 (00:53→16:44)
[2021-08-29] MEDS ORDERED: PIPERACILLIN/TAZOBACTAM 3.375 GM VIAL IVPB ONE ×3 (00:53→16:44)
[2021-08-29] MEDS: PIPERACILLIN/TAZOB 3.375 GM 3.375 GM in DEXTROSE 5%-WATER - 50 ML IVPB SCH ×3 (01:55→17:30)
[2021-08-29] MEDS: VANCOMYCIN 1 GRAM (PRE-DOCKED) 1,000 MG/250 ML BAG IVPB SCH ×2 (02:29→14:02)
[2021-08-29] MEDS: HEPARIN NA (PORCINE) 5,000 UNITS/ML 1ML VIAL SQ SCH ×3 (05:06→21:28)
[2021-08-29] MEDS: INSULIN SLIDING SCALE (NOVOLOG) 1 VIAL SQ SCH ×4 (06:12→21:36)
[2021-08-29 09:05] LABS: BASO % 0.4 % (0-2.0); EOS % 0.3 % (0-4.5); HEMATOCRIT 35.9 % (35.4-49); HEMOGLOBIN 11.7 GM/dL (11.7-16.9); LYMPH % 8.8 % (8-40); MCH 29.4 pg (25.7-33.7); MCHC 32.6 g/dl (32.0-35.9); MEAN CELL VOLUME 90.2 fl (80-96); MEAN PLT VOLUME 9.8 fl (7.5-11.1); MONO % 4.7 % (3.8-10.2); NEUT % 85.8 % (42.8-82.8); PLATELET COUNT 209 10^3/uL (134-434); RBC 3.98 M/mm3 (4.00-5.60); RDW 18.5 % (11.9-15.9); WHITE BLOOD COUNT 14.1 K/mm3 (4.0-10.0)
[2021-08-29 09:16] LABS: ALBUMIN 2.4 g/dl (3.4-5.0)
[2021-08-29 09:17] LABS: BLOOD UREA NITROGEN 15.2 mg/dL (7-18)
[2021-08-29 09:19] LABS: CREATININE 1.2 mg/dL (0.55-1.3)
[2021-08-29 09:21] LABS: BILIRUBIN,TOTAL 2.3 mg/dL (0.2-1); TOT PROT 6.8 g/dl (6.4-8.2)
[2021-08-29] MEDS ORDERED: VANCOMYCIN 1 GRAM (PRE-DOCKED) 1,000 MG/250 ML BAG IVPB SCH (10:00)
[2021-08-29] MEDS ORDERED: PIPERACILLIN/TAZOB 4.5 GM 4.5 GM in DEXTROSE 5%-WATER 100 ML IVPB SCH (10:00)
[2021-08-29] MEDS ORDERED: PATIENT'S OWN MEDICATION (NON-FORMULARY) (Losartan/Hydrochlorothiazide [Losartan-Hctz 100- PO SCH (10:00)
[2021-08-29] MEDS ORDERED: LOSARTAN POTASSIUM 50 MG TABLET PO SCH (10:00)
[2021-08-29] MEDS: metoPROLOL SUCCINATE 25 MG TAB.SR.24H (FP) PO SCH ×2 (11:07→12:00)
[2021-08-29] MEDS: SPIRONOLACTONE 25 MG TABLET PO SCH ×2 (11:07→11:48)
[2021-08-29] MEDS: HYDROCHLOROTHIAZIDE 25 MG TABLET (FP) PO SCH (11:07)
[2021-08-29] MEDS ORDERED: metoPROLOL SUCCINATE 25 MG TAB.SR.24H (FP) PO SCH (11:44)
[2021-08-29] MEDS ORDERED: metoPROLOL SUCCINATE 25 MG TAB.SR.24H (FP) PO ONE (12:30)
[2021-08-29] MEDS ORDERED: PT OWN MED DRAWER 7, Y5N ONE (13:56)
[2021-08-29] MEDS ORDERED: LIDOCAINE HCL/PF 2% SDV 5ML VIAL ONE (17:28)
[2021-08-29] MEDS ORDERED: GLYCOPYRROLATE 0.2 MG/1 ML VIAL ONE (17:28)
[2021-08-29] MEDS ORDERED: MIDAZOLAM HCL 2 MG/2 ML SINGLE DOSE VIAL ONE (17:29)
[2021-08-29] MEDS ORDERED: KETAMINE HCL 200 MG/20 ML VIAL ONE (17:29)
[2021-08-29] MEDS ORDERED: PROPOFOL 20 ML ONE ×2 (17:29)
[2021-08-29] MEDS ORDERED: LIDOCAINE HCL 1%, 10 MG/ML (20ML VIAL) ONE (18:36)
[2021-08-29] MEDS ORDERED: HEPARIN NA (PORCINE) 5,000 UNITS/ML 1ML VIAL ONE (18:36)
[2021-08-29] MEDS ORDERED: ROSUVASTATIN CA 5 MG TABLET (FP) PO SCH (22:00)
[2021-08-30] MEDS ORDERED: PIPERACILLIN/TAZOBACTAM 3.375 GM VIAL IVPB ONE ×2 (00:59→08:33)
[2021-08-30] MEDS ORDERED: DEXTROSE 5%-WATER - 50 ML IVPB ONE ×2 (00:59→08:33)
[2021-08-30] MEDS: PIPERACILLIN/TAZOB 3.375 GM 3.375 GM in DEXTROSE 5%-WATER - 50 ML IVPB SCH ×2 (01:35→09:05)
[2021-08-30] MEDS: VANCOMYCIN 1 GRAM (PRE-DOCKED) 1,000 MG/250 ML BAG IVPB SCH ×2 (02:15→14:15)
[2021-08-30] MEDS: HEPARIN NA (PORCINE) 5,000 UNITS/ML 1ML VIAL SQ SCH ×2 (05:08→14:08)
[2021-08-30] MEDS: INSULIN SLIDING SCALE (NOVOLOG) 1 VIAL SQ SCH ×4 (06:14→22:12)
[2021-08-30] MEDS: SPIRONOLACTONE 25 MG TABLET PO SCH (09:06)
[2021-08-30] MEDS: HYDROCHLOROTHIAZIDE 25 MG TABLET (FP) PO SCH (09:06)
[2021-08-30] MEDS ORDERED: ASPIRIN 81 MG CHEWABLE TABLETS PO STA (11:55)
[2021-08-30] MEDS ORDERED: CLOPIDOGREL BISULFATE 300 MG TABLET PO ONE (12:00)
[2021-08-30] MEDS ORDERED: PT OWN MED DRAWER 7, Y5N ONE (12:15)
[2021-08-30] MEDS ORDERED: SACUBITRIL/VALSARTAN 24 MG-26 MG TABLET PO SCH ×2 (13:00→22:00)
[2021-08-30] MEDS ORDERED: HEPARIN NA (PORCINE) 5,000 UNITS/ML 1ML VIAL ONE ×2 (15:14→15:17)
[2021-08-30] MEDS ORDERED: NITROGLYCERIN 50 MG/10 ML VIAL IVPB ONE (15:14)
[2021-08-30] MEDS ORDERED: LIDOCAINE HCL 1%, 10 MG/ML (20ML VIAL) ONE (15:18)
[2021-08-30] MEDS ORDERED: MIDAZOLAM HCL 2 MG/2 ML SINGLE DOSE VIAL ONE (19:04)
[2021-08-30] MEDS ORDERED: LIDOCAINE HCL 1%, 10 MG/ML (50 mL VIAL) INF ONE (19:12)
[2021-08-30] MEDS ORDERED: HEPARIN INFUSION - 25,000 UNITS/500 ML INFUS.BAG IVPB ONE (20:11)
[2021-08-30] MEDS ORDERED: AMPICILLIN NA/SULBACTAM NA 3 GM in SODIUM CHLORIDE 100 ML IVPB SCH (21:00)
[2021-08-30] MEDS ORDERED: ONDANSETRON 4 MG/2 ML VIAL IVPUSH PRN (21:03)
[2021-08-30] MEDS ORDERED: HEPARIN SOD,PORK IN 0.45% NACL 25,000 UNITS/500 ML INFUS.BAG IVPB SCH (21:13)
[2021-08-30] MEDS ORDERED: HEPARIN NA (PORCINE) 5,000 UNITS/ML 1ML VIAL IVPUSH PRN ×2 (21:13)
[2021-08-30] MEDS ORDERED: MUPIROCIN 2% TOPICAL OINTMENT FOR DECOLONIZATION NS SCH ×2 (22:00→23:45)
[2021-08-30] MEDS ORDERED: ROSUVASTATIN CA 5 MG TABLET (FP) PO SCH (22:00)
[2021-08-30] MEDS ORDERED: CHLORHEXIDINE GLUCONATE 4% CLEANSER FOR DECOLONIZATION TP SCH (22:00)
[2021-08-31] MEDS ORDERED: AMPICILLIN NA/SULBACTAM NA 3 GM in SODIUM CHLORIDE 100 ML IVPB SCH (03:00)
[2021-08-31] MEDS ORDERED: AMPICILLIN NA/SULBACTAM NA 3 GM VIAL ONE ×4 (03:11→21:15)
[2021-08-31] MEDS ORDERED: SODIUM CHLORIDE 100 ML IVPB ONE ×4 (03:11→21:16)
[2021-08-31] MEDS: INSULIN SLIDING SCALE (NOVOLOG) 1 VIAL SQ SCH ×4 (06:26→22:48)
[2021-08-31 06:49] LABS: BASO % 1.2 % (0-2.0); HEMATOCRIT 40.5 % (35.4-49); HEMOGLOBIN 13.4 GM/dL (11.7-16.9); LYMPH % 6.4 % (8-40); MCH 29.6 pg (25.7-33.7); MCHC 33.2 g/dl (32.0-35.9); MEAN CELL VOLUME 89.4 fl (80-96); MEAN PLT VOLUME 9.6 fl (7.5-11.1); MONO % 3.1 % (3.8-10.2); NEUT % 88.3 % (42.8-82.8); PLATELET COUNT 253 10^3/uL (134-434); RBC 4.53 M/mm3 (4.00-5.60); RDW 18.2 % (11.9-15.9)
[2021-08-31 07:05] LABS: INR 1.5 (0.83-1.09); PROTHROMBIN TIME (PATIENT) 16.9 SEC (9.7-13.0)
[2021-08-31 07:08] LABS: ACTIVATED PTT 79.1 SECONDS (25.2-36.5)
[2021-08-31 07:14] LABS: CALCIUM 8.6 mg/dL (8.5-10.1)
[2021-08-31 07:15] LABS: ALBUMIN 2.2 g/dl (3.4-5.0); BLOOD UREA NITROGEN 28.9 mg/dL (7-18)
[2021-08-31 07:18] LABS: CREATININE 1.5 mg/dL (0.55-1.3)
[2021-08-31 07:19] LABS: TOT PROT 6.9 g/dl (6.4-8.2)
[2021-08-31] MEDS: HEPARIN SOD,PORK IN 0.45% NACL 25,000 UNITS/500 ML INFUS.BAG IVPB SCH (07:35)
[2021-08-31] MEDS ORDERED: HEPARIN NA (PORCINE) 5,000 UNITS/ML 1ML VIAL IVPUSH PRN ×2 (07:40)
[2021-08-31] MEDS: AMPICILLIN NA/SULBACTAM NA 3 GM in SODIUM CHLORIDE 100 ML IVPB SCH ×3 (09:00→22:47)
[2021-08-31] MEDS: SACUBITRIL/VALSARTAN 24 MG-26 MG TABLET PO SCH ×2 (09:01→23:02)
[2021-08-31] MEDS: metoPROLOL SUCCINATE 25 MG TAB.SR.24H (FP) PO SCH (09:01)
[2021-08-31] MEDS: MUPIROCIN 2% TOPICAL OINTMENT FOR DECOLONIZATION NS SCH ×2 (09:01→22:47)
[2021-08-31] MEDS: SPIRONOLACTONE 25 MG TABLET PO SCH (09:01)
[2021-08-31] MEDS ORDERED: HYDROCHLOROTHIAZIDE 25 MG TABLET (FP) PO SCH ×2 (10:00)
[2021-08-31] MEDS ORDERED: SPIRONOLACTONE 25 MG TABLET PO SCH (10:00)
[2021-08-31] MEDS ORDERED: metoPROLOL SUCCINATE 25 MG TAB.SR.24H (FP) PO SCH (10:00)
[2021-08-31] MEDS ORDERED: PT OWN MED DRAWER 7, Y5N ONE (20:48)
[2021-08-31] MEDS ORDERED: CHLORHEXIDINE GLUCONATE 4% CLEANSER FOR DECOLONIZATION TP SCH ×2 (22:00)
[2021-08-31] MEDS: ROSUVASTATIN CA 5 MG TABLET (FP) PO SCH (22:47)
[2021-09-01] MEDS: AMPICILLIN NA/SULBACTAM NA 3 GM in SODIUM CHLORIDE 100 ML IVPB SCH ×4 (03:10→21:00)
[2021-09-01] MEDS ORDERED: AMPICILLIN NA/SULBACTAM NA 3 GM VIAL ONE ×4 (03:28→20:25)
[2021-09-01] MEDS ORDERED: SODIUM CHLORIDE 100 ML IVPB ONE ×4 (03:28→20:25)
[2021-09-01] MEDS: INSULIN SLIDING SCALE (NOVOLOG) 1 VIAL SQ SCH ×4 (06:08→21:00)
[2021-09-01] MEDS ORDERED: PT OWN MED DRAWER 7, Y5N ONE ×4 (07:58→17:53)
[2021-09-01] MEDS: SACUBITRIL/VALSARTAN 24 MG-26 MG TABLET PO SCH ×2 (09:28→21:00)
[2021-09-01] MEDS: SPIRONOLACTONE 25 MG TABLET PO SCH (09:28)
[2021-09-01] MEDS: metoPROLOL SUCCINATE 25 MG TAB.SR.24H (FP) PO SCH (09:28)
[2021-09-01 12:02] LABS: BASO % 0.4 % (0-2.0); EOS % 0.5 % (0-4.5); HEMATOCRIT 38.6 % (35.4-49); HEMOGLOBIN 12.3 GM/dL (11.7-16.9); MCH 29.2 pg (25.7-33.7); MCHC 31.9 g/dl (32.0-35.9); MEAN CELL VOLUME 91.6 fl (80-96); MEAN PLT VOLUME 10.1 fl (7.5-11.1); MONO % 3.8 % (3.8-10.2); NEUT % 85.3 % (42.8-82.8); PLATELET COUNT 276 10^3/uL (134-434); RBC 4.21 M/mm3 (4.00-5.60); RDW 18.7 % (11.9-15.9); WHITE BLOOD COUNT 11.7 K/mm3 (4.0-10.0)
[2021-09-01 12:12] LABS: CALCIUM 8.6 mg/dL (8.5-10.1)
[2021-09-01 12:13] LABS: ALBUMIN 2.1 g/dl (3.4-5.0); BLOOD UREA NITROGEN 27.2 mg/dL (7-18); MAGNESIUM 2.3 mg/dL (1.8-2.4)
[2021-09-01 12:16] LABS: CREATININE 1.4 mg/dL (0.55-1.3)
[2021-09-01 12:17] LABS: BILIRUBIN,TOTAL 1.3 mg/dL (0.2-1)
[2021-09-01 12:18] LABS: TOT PROT 6.5 g/dl (6.4-8.2)
[2021-09-01] MEDS: HEPARIN SOD,PORK IN 0.45% NACL 25,000 UNITS/500 ML INFUS.BAG IVPB SCH ×2 (13:47→17:55)
[2021-09-01] MEDS ORDERED: INSULIN (NOVOLOG) ASPART 100 UNITS/ML 10ML VIAL ONE (20:48)
[2021-09-01] MEDS: ROSUVASTATIN CA 5 MG TABLET (FP) PO SCH (21:00)
[2021-09-02] MEDS ORDERED: SODIUM CHLORIDE 100 ML IVPB ONE ×4 (03:31→21:03)
[2021-09-02] MEDS ORDERED: AMPICILLIN NA/SULBACTAM NA 3 GM VIAL ONE ×4 (03:31→21:03)
[2021-09-02] MEDS: AMPICILLIN NA/SULBACTAM NA 3 GM in SODIUM CHLORIDE 100 ML IVPB SCH ×4 (03:34→21:21)
[2021-09-02] MEDS ORDERED: HEPARIN NA (PORCINE) 5,000 UNITS/ML 1ML VIAL IVPUSH PRN ×2 (03:40)
[2021-09-02] MEDS: INSULIN SLIDING SCALE (NOVOLOG) 1 VIAL SQ SCH ×4 (06:36→21:23)
[2021-09-02] MEDS: HEPARIN SOD,PORK IN 0.45% NACL 25,000 UNITS/500 ML INFUS.BAG IVPB SCH ×3 (06:36→19:17)
[2021-09-02] MEDS ORDERED: POLYETHYLENE GLYCOL 3350 119 GM BTL PO PRN (08:37)
[2021-09-02 08:57] LABS: HEMATOCRIT 35.4 % (35.4-49); HEMOGLOBIN 11.7 GM/dL (11.7-16.9); MCH 29.9 pg (25.7-33.7); MCHC 33.1 g/dl (32.0-35.9); MEAN CELL VOLUME 90.3 fl (80-96); MEAN PLT VOLUME 9.6 fl (7.5-11.1); PLATELET COUNT 227 10^3/uL (134-434); RBC 3.93 M/mm3 (4.00-5.60); WHITE BLOOD COUNT 9.7 K/mm3 (4.0-10.0)
[2021-09-02] MEDS: SPIRONOLACTONE 25 MG TABLET PO SCH (11:02)
[2021-09-02] MEDS: SACUBITRIL/VALSARTAN 24 MG-26 MG TABLET PO SCH ×2 (11:03→21:23)
[2021-09-02] MEDS: metoPROLOL SUCCINATE 25 MG TAB.SR.24H (FP) PO SCH (11:03)
[2021-09-02] MEDS ORDERED: PT OWN MED DRAWER 7, Y5N ONE (11:30)
[2021-09-02] MEDS: ROSUVASTATIN CA 5 MG TABLET (FP) PO SCH (21:23)
[2021-09-03] MEDS ORDERED: AMPICILLIN NA/SULBACTAM NA 3 GM VIAL ONE ×4 (01:09→20:11)
[2021-09-03] MEDS ORDERED: SODIUM CHLORIDE 100 ML IVPB ONE ×4 (01:09→20:11)
[2021-09-03] MEDS: AMPICILLIN NA/SULBACTAM NA 3 GM in SODIUM CHLORIDE 100 ML IVPB SCH ×4 (03:26→20:52)
[2021-09-03] MEDS: HEPARIN SOD,PORK IN 0.45% NACL 25,000 UNITS/500 ML INFUS.BAG IVPB SCH ×3 (06:02→23:35)
[2021-09-03] MEDS: INSULIN SLIDING SCALE (NOVOLOG) 1 VIAL SQ SCH ×4 (06:02→21:00)
[2021-09-03 08:39] LABS: BASO % 0.5 % (0-2.0); EOS % 0.6 % (0-4.5); HEMATOCRIT 35.3 % (35.4-49); HEMOGLOBIN 11.7 GM/dL (11.7-16.9); LYMPH % 12.5 % (8-40); MCH 29.8 pg (25.7-33.7); MCHC 33.2 g/dl (32.0-35.9); MEAN CELL VOLUME 89.8 fl (80-96); MEAN PLT VOLUME 9.8 fl (7.5-11.1); MONO % 5.8 % (3.8-10.2); NEUT % 80.6 % (42.8-82.8); PLATELET COUNT 237 10^3/uL (134-434); RBC 3.94 M/mm3 (4.00-5.60); RDW 18.7 % (11.9-15.9); WHITE BLOOD COUNT 9.2 K/mm3 (4.0-10.0)
[2021-09-03 09:58] LABS: ALBUMIN 2.2 g/dl (3.4-5.0); CALCIUM 8.6 mg/dL (8.5-10.1)
[2021-09-03 09:59] LABS: BLOOD UREA NITROGEN 28.9 mg/dL (7-18)
[2021-09-03 10:02] LABS: CREATININE 1.2 mg/dL (0.55-1.3)
[2021-09-03 10:03] LABS: BILIRUBIN,TOTAL 1.3 mg/dL (0.2-1); TOT PROT 6.8 g/dl (6.4-8.2)
[2021-09-03] MEDS: SPIRONOLACTONE 25 MG TABLET PO SCH (10:07)
[2021-09-03] MEDS: metoPROLOL SUCCINATE 25 MG TAB.SR.24H (FP) PO SCH (10:08)
[2021-09-03] MEDS ORDERED: PT OWN MED DRAWER 7, Y5N ONE ×3 (10:09→20:12)
[2021-09-03] MEDS: SACUBITRIL/VALSARTAN 24 MG-26 MG TABLET PO SCH ×2 (10:10→21:00)
[2021-09-03] MEDS ORDERED: INSULIN (NOVOLOG) ASPART 100 UNITS/ML 10ML VIAL ONE (11:22)
[2021-09-03] MEDS: ROSUVASTATIN CA 5 MG TABLET (FP) PO SCH (21:00)
[2021-09-04] MEDS ORDERED: AMPICILLIN NA/SULBACTAM NA 3 GM VIAL ONE ×2 (04:07→09:46)
[2021-09-04] MEDS ORDERED: SODIUM CHLORIDE 100 ML IVPB ONE ×2 (04:08→09:46)
[2021-09-04] MEDS: AMPICILLIN NA/SULBACTAM NA 3 GM in SODIUM CHLORIDE 100 ML IVPB SCH ×2 (04:16→09:50)
[2021-09-04] MEDS: INSULIN SLIDING SCALE (NOVOLOG) 1 VIAL SQ SCH ×3 (06:02→17:28)
[2021-09-04] MEDS: SPIRONOLACTONE 25 MG TABLET PO SCH (09:49)
[2021-09-04] MEDS: metoPROLOL SUCCINATE 25 MG TAB.SR.24H (FP) PO SCH (09:49)
[2021-09-04] MEDS ORDERED: PT OWN MED DRAWER 7, Y5N ONE ×3 (09:55→15:14)
[2021-09-04] MEDS: SACUBITRIL/VALSARTAN 24 MG-26 MG TABLET PO SCH (09:56)
[2021-09-04] MEDS ORDERED: APIXABAN 5 MG TABLET PO SCH (10:00)
[2021-09-04] MEDS ORDERED: SODIUM CHLORIDE IVPB SCH (14:00)
[2021-09-04] MEDS ORDERED: DAPTOMYCIN IVPB SCH (14:00)
[2021-09-04 14:56] VITALS: BP 109/71; PULSE 90; TEMP 98.2
[2021-09-04] MEDS ORDERED: PICC LINE 8 ML FLUSH PROTOCOL IVPUSH PRN (15:45)
[2021-09-04] MEDS ORDERED: INSULIN (NOVOLOG) ASPART 100 UNITS/ML 10ML VIAL ONE (17:27)
== END 2021-09-04 18:23 | disposition home or self-care (01) | DRG 253 ==
LOC: JER 16:34 → JERBED 20:11 → J5S 08-28 01:53 → JICU 08-30 22:03 → J8W 08-31 21:07
PROVIDERS: ATTEND Internal Medicine
PROC: 047S3Z1 Dilation of Left Posterior Tibial Artery using Drug-Coated Balloon, Percutaneous Approach (ICD-10-PCS; 2021-08-30)
PROC: 047N3Z1 Dilation of Left Popliteal Artery using Drug-Coated Balloon, Percutaneous Approach (ICD-10-PCS; 2021-08-30)
PROC: 047L3Z1 Dilation of Left Femoral Artery using Drug-Coated Balloon, Percutaneous Approach (ICD-10-PCS; 2021-08-30)
PROC: 3E05317 Introduction of Other Thrombolytic into Peripheral Artery, Percutaneous Approach (ICD-10-PCS; 2021-08-30)
PROC: 047Q3Z1 Dilation of Left Anterior Tibial Artery using Drug-Coated Balloon, Percutaneous Approach (ICD-10-PCS; principal; 2021-08-30 16:30)
PROC: 0JBQ0ZZ Excision of Right Foot Subcutaneous Tissue and Fascia, Open Approach (ICD-10-PCS; 2021-09-04)
PROC: 05HB33Z Insertion of Infusion Device into Right Basilic Vein, Percutaneous Approach (ICD-10-PCS; 2021-09-04)
PROC: B51MZZA Fluoroscopy of Right Upper Extremity Veins, Guidance (ICD-10-PCS; 2021-09-04)
DX: E11.52 Type 2 diabetes mellitus with diabetic peripheral angiopathy with gangrene (principal); I13.0 Hypertensive heart and chronic kidney disease with heart failure and stage 1 through stage 4 chronic kidney disease, or unspecified chronic kidney disease; I50.22 Chronic systolic (congestive) heart failure; L03.116 Cellulitis of left lower limb; M86.9 Osteomyelitis, unspecified; I48.92 Unspecified atrial flutter; E11.621 Type 2 diabetes mellitus with foot ulcer; I48.91 Unspecified atrial fibrillation; J45.909 Unspecified asthma, uncomplicated; E78.00 Pure hypercholesterolemia, unspecified; I25.119 Atherosclerotic heart disease of native coronary artery with unspecified angina pectoris; I25.2 Old myocardial infarction; E11.22 Type 2 diabetes mellitus with diabetic chronic kidney disease; L97.529 Non-pressure chronic ulcer of other part of left foot with unspecified severity; E11.628 Type 2 diabetes mellitus with other skin complications; D72.829 Elevated white blood cell count, unspecified; N18.9 Chronic kidney disease, unspecified; I74.3 Embolism and thrombosis of arteries of the lower extremities; E11.51 Type 2 diabetes mellitus with diabetic peripheral angiopathy without gangrene; E11.69 Type 2 diabetes mellitus with other specified complication; I48.0 Paroxysmal atrial fibrillation
CPT/HCPCS: 36415; 36569; 73610-TC-LT-FY; 73630-TC-LT; 73718-TC-LT; 76000-TC-FY; 80048; 80053; 82550; 82962; 83036; 83735; 84100; 84484; 85025; 85027; 85610; 85651; 85730; 86140; 86850; 86900; 86901; 87040; 87070; 87186; 87205; 93005; 93010; 93306-TC; 93926-TC; 94760; 99285-25; C9803; J0131; J0878; J1644; U0003; U0005

== ENCOUNTER 2021-09-18 10:41 | Inpatient (IN) | payer OTHER, BC ==
[2021-09-18] MEDS ORDERED: DAPTOMYCIN IVPB ONE (13:04)
[2021-09-18] MEDS ORDERED: SODIUM CHLORIDE IVPB ONE (13:04)
[2021-09-18 14:08] LABS: BASO % 0.6 % (0-2.0); HEMATOCRIT 40.9 % (35.4-49); HEMOGLOBIN 13.5 GM/dL (11.7-16.9); LYMPH % 18.2 % (8-40); MCHC 32.9 g/dl (32.0-35.9); MONO % 6.5 % (3.8-10.2); NEUT % 71.7 % (42.8-82.8); PLATELET COUNT 147 10^3/uL (134-434); RBC 4.65 M/mm3 (4.00-5.60); RDW 19.1 % (11.9-15.9); WHITE BLOOD COUNT 7.6 K/mm3 (4.0-10.0)
[2021-09-18 14:17] LABS: INR 1.43 (0.83-1.09); PROTHROMBIN TIME (PATIENT) 16.8 SEC (9.7-13.0)
[2021-09-18 14:20] LABS: ACTIVATED PTT 28.6 SECONDS (25.2-36.5)
[2021-09-18] MEDS ORDERED: ACETAMINOPHEN 325 MG TABLET (FP) PO PRN (15:09)
[2021-09-18 15:12] LABS: ALBUMIN 2.6 g/dl (3.4-5.0); BLOOD UREA NITROGEN 22.9 mg/dL (7-18)
[2021-09-18 15:15] LABS: CREATININE 1.4 mg/dL (0.55-1.3)
[2021-09-18 15:17] LABS: BILIRUBIN,TOTAL 1.1 mg/dL (0.2-1)
[2021-09-18 15:20] LABS: TOT PROT 7.8 g/dl (6.4-8.2)
[2021-09-18] MEDS ORDERED: ROSUVASTATIN CA 5 MG TABLET (FP) PO SCH (22:00)
[2021-09-18] MEDS ORDERED: PT OWN MED DRAWER 7, Y5N ONE (22:13)
[2021-09-18] MEDS: SACUBITRIL/VALSARTAN 24 MG-26 MG TABLET PO SCH (22:18)
[2021-09-19 00:03] VITALS: BMI 22.5
[2021-09-19] MEDS ORDERED: SODIUM CHLORIDE 100 ML IVPB ONE ×4 (02:17→21:10)
[2021-09-19] MEDS ORDERED: AMPICILLIN NA/SULBACTAM NA 1.5 GM VIAL ONE ×4 (02:17→21:10)
[2021-09-19] MEDS: AMPICILLIN NA/SULBACTAM NA 1.5 GM in SODIUM CHLORIDE 100 ML IVPB SCH ×4 (02:57→21:15)
[2021-09-19] MEDS ORDERED: PT OWN MED DRAWER 7, Y5N ONE (09:52)
[2021-09-19] MEDS: SACUBITRIL/VALSARTAN 24 MG-26 MG TABLET PO SCH ×2 (09:56→21:24)
[2021-09-19] MEDS ORDERED: SPIRONOLACTONE 25 MG TABLET PO SCH (10:00)
[2021-09-19] MEDS ORDERED: metoPROLOL SUCCINATE 25 MG TAB.SR.24H (FP) PO SCH (10:00)
[2021-09-19] MEDS ORDERED: LIDOCAINE HCL 2% (20ML MULTI-DOSE VIAL) ONE (10:59)
[2021-09-19] MEDS ORDERED: SUCCINYLCHOLINE CHLORIDE 200 MG/10 ML SYRINGE ONE (11:19)
[2021-09-19] MEDS ORDERED: PROPOFOL 20 ML ONE ×3 (11:19)
[2021-09-19] MEDS ORDERED: MIDAZOLAM HCL 2 MG/2 ML SINGLE DOSE VIAL ONE (11:19)
[2021-09-19] MEDS ORDERED: VANCOMYCIN 1,000 MG VIAL (RESTRICTED TO ID ONLY) ONE (11:40)
[2021-09-19] MEDS ORDERED: LIDOCAINE HCL 2% (50ML VIAL) NR ONE (11:44)
[2021-09-19] MEDS ORDERED: VANCOMYCIN 1,000 MG VIAL (RESTRICTED TO ID ONLY) IVPB ONE (12:00)
[2021-09-19] MEDS: ROSUVASTATIN CA 5 MG TABLET (FP) PO SCH (21:18)
[2021-09-20] MEDS ORDERED: AMPICILLIN NA/SULBACTAM NA 1.5 GM VIAL ONE ×4 (01:35→22:50)
[2021-09-20] MEDS ORDERED: SODIUM CHLORIDE 100 ML IVPB ONE ×4 (01:36→22:50)
[2021-09-20] MEDS: AMPICILLIN NA/SULBACTAM NA 1.5 GM in SODIUM CHLORIDE 100 ML IVPB SCH ×4 (02:41→22:58)
[2021-09-20] MEDS ORDERED: PT OWN MED DRAWER 7, Y5N ONE ×2 (09:25→22:50)
[2021-09-20] MEDS: SACUBITRIL/VALSARTAN 24 MG-26 MG TABLET PO SCH ×2 (09:32→22:58)
[2021-09-20] MEDS: SPIRONOLACTONE 25 MG TABLET PO SCH (09:33)
[2021-09-20] MEDS: metoPROLOL SUCCINATE 25 MG TAB.SR.24H (FP) PO SCH (09:33)
[2021-09-20] MEDS: ACETAMINOPHEN 325 MG TABLET (FP) PO PRN (11:20)
[2021-09-20 13:46] LABS: BASO % 0.6 % (0-2.0); EOS % 1.6 % (0-4.5); HEMATOCRIT 38.4 % (35.4-49); HEMOGLOBIN 12.2 GM/dL (11.7-16.9); LYMPH % 29.2 % (8-40); MCH 27.9 pg (25.7-33.7); MCHC 31.8 g/dl (32.0-35.9); MONO % 6.6 % (3.8-10.2); PLATELET COUNT 116 10^3/uL (134-434); RBC 4.36 M/mm3 (4.00-5.60)
[2021-09-20 14:19] LABS: ALBUMIN 2.1 g/dl (3.4-5.0); BLOOD UREA NITROGEN 19.6 mg/dL (7-18)
[2021-09-20 14:20] LABS: CALCIUM 8.7 mg/dL (8.5-10.1)
[2021-09-20 14:24] LABS: CREATININE 1.3 mg/dL (0.55-1.3)
[2021-09-20 14:26] LABS: BILIRUBIN,TOTAL 1.3 mg/dL (0.2-1); TOT PROT 6.8 g/dl (6.4-8.2)
[2021-09-20 14:34] LABS: ERYTHROCYTE SEDIMENTATION RATE 9 mm/hr (0-20)
[2021-09-20] MEDS: INSULIN SLIDING SCALE (NOVOLOG) 1 VIAL SQ SCH (15:38)
[2021-09-20] MEDS: APIXABAN 5 MG TABLET PO SCH (22:58)
[2021-09-20] MEDS: ROSUVASTATIN CA 5 MG TABLET (FP) PO SCH (22:58)
[2021-09-21] MEDS ORDERED: AMPICILLIN NA/SULBACTAM NA 1.5 GM VIAL ONE ×2 (02:04→07:58)
[2021-09-21] MEDS ORDERED: SODIUM CHLORIDE 100 ML IVPB ONE ×2 (02:05→07:58)
[2021-09-21] MEDS: AMPICILLIN NA/SULBACTAM NA 1.5 GM in SODIUM CHLORIDE 100 ML IVPB SCH ×2 (02:21→08:37)
[2021-09-21] MEDS: ACETAMINOPHEN 325 MG TABLET (FP) PO PRN (02:39)
[2021-09-21] MEDS: INSULIN SLIDING SCALE (NOVOLOG) 1 VIAL SQ SCH ×2 (06:11→16:14)
[2021-09-21] MEDS: SPIRONOLACTONE 25 MG TABLET PO SCH (09:17)
[2021-09-21] MEDS: metoPROLOL SUCCINATE 25 MG TAB.SR.24H (FP) PO SCH (09:17)
[2021-09-21] MEDS: SACUBITRIL/VALSARTAN 24 MG-26 MG TABLET PO SCH ×2 (09:18→21:35)
[2021-09-21] MEDS: APIXABAN 5 MG TABLET PO SCH ×2 (09:18→21:35)
[2021-09-21] MEDS ORDERED: PIPERACILLIN/TAZOBACTAM 3.375 GM VIAL IVPB ONE (17:05)
[2021-09-21] MEDS ORDERED: DEXTROSE 5%-WATER - 50 ML IVPB ONE (17:06)
[2021-09-21] MEDS: PIPERACILLIN/TAZOB 3.375 GM 3.375 GM in DEXTROSE 5%-WATER - 50 ML IVPB SCH (17:20)
[2021-09-21] MEDS ORDERED: PT OWN MED DRAWER 7, Y5N ONE (21:31)
[2021-09-21] MEDS: ROSUVASTATIN CA 5 MG TABLET (FP) PO SCH (21:35)
[2021-09-22] MEDS ORDERED: DEXTROSE 5%-WATER - 50 ML IVPB ONE ×3 (01:07→17:38)
[2021-09-22] MEDS ORDERED: PIPERACILLIN/TAZOBACTAM 3.375 GM VIAL IVPB ONE ×3 (01:07→17:38)
[2021-09-22] MEDS: PIPERACILLIN/TAZOB 3.375 GM 3.375 GM in DEXTROSE 5%-WATER - 50 ML IVPB SCH ×3 (01:26→18:02)
[2021-09-22] MEDS: INSULIN SLIDING SCALE (NOVOLOG) 1 VIAL SQ SCH ×2 (06:05→17:58)
[2021-09-22] MEDS: APIXABAN 5 MG TABLET PO SCH ×2 (10:16→22:12)
[2021-09-22] MEDS: SPIRONOLACTONE 25 MG TABLET PO SCH (10:16)
[2021-09-22] MEDS: metoPROLOL SUCCINATE 25 MG TAB.SR.24H (FP) PO SCH (10:16)
[2021-09-22] MEDS: SACUBITRIL/VALSARTAN 24 MG-26 MG TABLET PO SCH ×2 (10:17→22:12)
[2021-09-22] MEDS: ROSUVASTATIN CA 5 MG TABLET (FP) PO SCH (22:12)
[2021-09-23] MEDS ORDERED: PIPERACILLIN/TAZOBACTAM 3.375 GM VIAL IVPB ONE ×3 (00:53→16:59)
[2021-09-23] MEDS ORDERED: DEXTROSE 5%-WATER - 50 ML IVPB ONE ×3 (00:53→16:59)
[2021-09-23] MEDS: PIPERACILLIN/TAZOB 3.375 GM 3.375 GM in DEXTROSE 5%-WATER - 50 ML IVPB SCH ×3 (01:57→17:15)
[2021-09-23] MEDS: INSULIN SLIDING SCALE (NOVOLOG) 1 VIAL SQ SCH ×2 (07:09→17:18)
[2021-09-23] MEDS: APIXABAN 5 MG TABLET PO SCH ×2 (10:17→22:10)
[2021-09-23] MEDS: metoPROLOL SUCCINATE 25 MG TAB.SR.24H (FP) PO SCH (10:17)
[2021-09-23] MEDS: SPIRONOLACTONE 25 MG TABLET PO SCH (10:17)
[2021-09-23] MEDS: SACUBITRIL/VALSARTAN 24 MG-26 MG TABLET PO SCH ×2 (10:18→22:10)
[2021-09-23] MEDS: ROSUVASTATIN CA 5 MG TABLET (FP) PO SCH (22:10)
[2021-09-24] MEDS ORDERED: PIPERACILLIN/TAZOBACTAM 3.375 GM VIAL IVPB ONE ×2 (01:28→08:57)
[2021-09-24] MEDS ORDERED: DEXTROSE 5%-WATER - 50 ML IVPB ONE ×2 (01:28→08:57)
[2021-09-24] MEDS: PIPERACILLIN/TAZOB 3.375 GM 3.375 GM in DEXTROSE 5%-WATER - 50 ML IVPB SCH ×2 (03:01→10:27)
[2021-09-24] MEDS: INSULIN SLIDING SCALE (NOVOLOG) 1 VIAL SQ SCH ×2 (06:39→16:45)
[2021-09-24] MEDS: APIXABAN 5 MG TABLET PO SCH ×2 (10:26→21:35)
[2021-09-24] MEDS: SPIRONOLACTONE 25 MG TABLET PO SCH (10:26)
[2021-09-24] MEDS: metoPROLOL SUCCINATE 25 MG TAB.SR.24H (FP) PO SCH (10:26)
[2021-09-24] MEDS: SACUBITRIL/VALSARTAN 24 MG-26 MG TABLET PO SCH ×2 (10:27→21:35)
[2021-09-24] MEDS: SULFAMETHOXAZOLE/TRIMETHOPRIM 800MG/160MG D.S. TABLET PO SCH ×2 (13:56→21:35)
[2021-09-24] MEDS: ROSUVASTATIN CA 5 MG TABLET (FP) PO SCH (21:35)
[2021-09-25] MEDS: INSULIN SLIDING SCALE (NOVOLOG) 1 VIAL SQ SCH ×2 (06:07→16:43)
[2021-09-25] MEDS ORDERED: PT OWN MED DRAWER 7, Y5N ONE ×2 (10:09→22:46)
[2021-09-25] MEDS: APIXABAN 5 MG TABLET PO SCH ×2 (10:34→21:54)
[2021-09-25] MEDS: SPIRONOLACTONE 25 MG TABLET PO SCH (10:34)
[2021-09-25] MEDS: SULFAMETHOXAZOLE/TRIMETHOPRIM 800MG/160MG D.S. TABLET PO SCH ×2 (10:34→21:54)
[2021-09-25] MEDS: SACUBITRIL/VALSARTAN 24 MG-26 MG TABLET PO SCH ×3 (10:34→22:25)
[2021-09-25] MEDS: metoPROLOL SUCCINATE 25 MG TAB.SR.24H (FP) PO SCH ×2 (10:34→13:50)
[2021-09-25] MEDS: ROSUVASTATIN CA 5 MG TABLET (FP) PO SCH (21:54)
[2021-09-26] MEDS: INSULIN SLIDING SCALE (NOVOLOG) 1 VIAL SQ SCH ×2 (05:59→16:55)
[2021-09-26] MEDS: SULFAMETHOXAZOLE/TRIMETHOPRIM 800MG/160MG D.S. TABLET PO SCH (10:21)
[2021-09-26] MEDS: SACUBITRIL/VALSARTAN 24 MG-26 MG TABLET PO SCH (10:22)
[2021-09-26] MEDS: APIXABAN 5 MG TABLET PO SCH (10:22)
[2021-09-26] MEDS: SPIRONOLACTONE 25 MG TABLET PO SCH (10:22)
[2021-09-26] MEDS: metoPROLOL SUCCINATE 25 MG TAB.SR.24H (FP) PO SCH (10:22)
[2021-09-26 20:34] VITALS: BP 102/61; PULSE 96; TEMP 97.5
== END 2021-09-26 20:25 | disposition home or self-care (01) | DRG 240 ==
LOC: JER 10:41 → JERBED 13:17 → J5S 20:10
PROVIDERS: ADMIT Internal Medicine; ATTEND Internal Medicine
PROC: 0Y6N0ZB Detachment at Left Foot, Partial 2nd Ray, Open Approach (ICD-10-PCS; 2021-09-19)
PROC: 0Y6N0Z9 Detachment at Left Foot, Partial 1st Ray, Open Approach (ICD-10-PCS; principal; 2021-09-19 11:00)
DX: E11.51 Type 2 diabetes mellitus with diabetic peripheral angiopathy without gangrene (principal); I13.0 Hypertensive heart and chronic kidney disease with heart failure and stage 1 through stage 4 chronic kidney disease, or unspecified chronic kidney disease; L97.929 Non-pressure chronic ulcer of unspecified part of left lower leg with unspecified severity; I50.22 Chronic systolic (congestive) heart failure; M86.172 Other acute osteomyelitis, left ankle and foot; E11.22 Type 2 diabetes mellitus with diabetic chronic kidney disease; E11.621 Type 2 diabetes mellitus with foot ulcer; J45.909 Unspecified asthma, uncomplicated; E78.5 Hyperlipidemia, unspecified; I25.10 Atherosclerotic heart disease of native coronary artery without angina pectoris; R94.5 Abnormal results of liver function studies; I50.9 Heart failure, unspecified; I27.20 Pulmonary hypertension, unspecified; I48.91 Unspecified atrial fibrillation; E78.00 Pure hypercholesterolemia, unspecified; R62.7 Adult failure to thrive; N18.9 Chronic kidney disease, unspecified
CPT/HCPCS: 11042; 11045; 36415; 71045-TC-FY; 73630-TC-LT; 80053; 82962; 85025; 85610; 85651; 85730; 86140; 86850; 86900; 86901; 87040; 87070; 87075; 87186; 87205; 88304-TC; 88305-TC; 88311-TC; 93005; 93010; 94760; 99285-25; A6210; C9803; J0878; U0003; U0005

== ENCOUNTER 2021-12-20 12:40 | Inpatient (IN) | payer OTHER, BC ==
[2021-12-20] MEDS ORDERED: DEXTROSE 10%-WATER 500 ML INFUS.BAG IV ONE (14:18)
[2021-12-20 14:42] LABS: BASO % 0.4 % (0-2.0); EOS % 0.3 % (0-4.5); HEMATOCRIT 36.1 % (35.4-49); HEMOGLOBIN 11.5 GM/dL (11.7-16.9); LYMPH % 13.8 % (8-40); MCH 28.1 pg (25.7-33.7); MCHC 31.9 g/dl (32.0-35.9); MEAN CELL VOLUME 87.9 fl (80-96); MEAN PLT VOLUME 8.8 fl (7.5-11.1); MONO % 11.6 % (3.8-10.2); NEUT % 73.9 % (42.8-82.8); PLATELET COUNT 165 10^3/uL (134-434); RBC 4.11 M/mm3 (4.00-5.60); RDW 21.8 % (11.9-15.9); WHITE BLOOD COUNT 5.8 K/mm3 (4.0-10.0)
[2021-12-20 14:53] LABS: CHLORIDE 108 mmol/L (98-107); SODIUM 134 mmol/L (136-145)
[2021-12-20 14:55] LABS: ALBUMIN 2.6 g/dl (3.4-5.0); BLOOD UREA NITROGEN 28.9 mg/dL (7-18); CALCIUM 8.1 mg/dL (8.5-10.1); CO2 19 mmol/L (21-32); MAGNESIUM 2.1 mg/dL (1.8-2.4)
[2021-12-20 14:58] LABS: CREATININE 1.5 mg/dL (0.55-1.3); SGOT/AST 100 U/L (15-37)
[2021-12-20 15:00] LABS: BILIRUBIN,TOTAL 1.4 mg/dL (0.2-1); TOT PROT 7.2 g/dl (6.4-8.2)
[2021-12-20] MEDS ORDERED: ASPIRIN 81 MG CHEWABLE TABLETS PO ONE (15:00)
[2021-12-20 15:01] LABS: ALK PHOS 184 U/L (45-117)
[2021-12-20] MEDS ORDERED: ASPIRIN 81 MG CHEWABLE TABLETS ONE (15:11)
[2021-12-20 15:15] LABS: ANISOCYTOSIS 2+; MACROCYTOSIS 0; OVALOCYTE 1+; TARGET CELLS 1+
[2021-12-20 15:16] LABS: PLATELET ESTIMATE ADEQUATE
[2021-12-20 15:19] LABS: ANION GAP 6 MMOL/L (8-16); GLUCOSE,RANDOM 31 mg/dL (74-106); N-TERMINAL BNP 45447.7 pg/ml (5-450); SGPT/ALT 26 U/L (13-61)
[2021-12-20] MEDS ORDERED: FUROSEMIDE 40 MG/4 ML INJECTABLE VIAL IVPUSH ONE (15:21)
[2021-12-20] MEDS ORDERED: FUROSEMIDE 40 MG/4 ML INJECTABLE VIAL ONE (15:26)
[2021-12-20] MEDS ORDERED: DEXTROSE 50%-WATER - 25 GM/50 ML VIAL IVPUSH PRN (16:05)
[2021-12-20] MEDS ORDERED: INSULIN SLIDING SCALE (NOVOLOG) 1 VIAL SQ SCH (16:30)
[2021-12-20 19:31] LABS: EPI CELLS 30 /uL (0-25.1); HYALINE CASTS 2 /uL (0-3.1); URINE APPEARANCE CLEAR; URINE BACTERIA 161 /uL (0-1359); URINE BILIRUBIN NEGATIVE (NEGATIVE); URINE COLOR YELLOW; URINE GLUCOSE (UA) NEGATIVE (NEGATIVE); URINE KETONE NEGATIVE (NEGATIVE); URINE LEUK ESTERASE 1+ (NEGATIVE); URINE NITRITE NEGATIVE (NEGATIVE); URINE PROTEIN 1+ (NEGATIVE); URINE RBC 185 /uL (0-23.9); URINE UROBILINOGEN 0.2 mg/dL (0.2-1.0); URINE WBC 48 /uL (0-25.8)
[2021-12-20 20:47] LABS: CALCIUM 8.3 mg/dL (8.5-10.1)
[2021-12-20 20:51] LABS: CREATININE 1.5 mg/dL (0.55-1.3)
[2021-12-20] MEDS ORDERED: APIXABAN 5 MG TABLET ONE (22:19)
[2021-12-20] MEDS: APIXABAN 5 MG TABLET PO SCH (22:21)
[2021-12-20] MEDS: SACUBITRIL/VALSARTAN 24 MG-26 MG TABLET PO SCH (22:52)
[2021-12-20] MEDS: ROSUVASTATIN CA 5 MG TABLET PO SCH (22:52)
[2021-12-21 08:40] LABS: BASO % 0.9 % (0-2.0); EOS % 0.9 % (0-4.5); HEMATOCRIT 41.2 % (35.4-49); HEMOGLOBIN 12.7 GM/dL (11.7-16.9); LYMPH % 21.9 % (8-40); MCH 27.3 pg (25.7-33.7); MCHC 30.8 g/dl (32.0-35.9); MEAN CELL VOLUME 88.7 fl (80-96); MEAN PLT VOLUME 9.6 fl (7.5-11.1); MONO % 10.4 % (3.8-10.2); NEUT % 65.9 % (42.8-82.8); PLATELET COUNT 169 10^3/uL (134-434); RBC 4.64 M/mm3 (4.00-5.60); WHITE BLOOD COUNT 5.4 K/mm3 (4.0-10.0)
[2021-12-21 09:09] LABS: CALCIUM 8.4 mg/dL (8.5-10.1)
[2021-12-21 09:10] LABS: ALBUMIN 2.7 g/dl (3.4-5.0); BLOOD UREA NITROGEN 28.3 mg/dL (7-18)
[2021-12-21] MEDS: APIXABAN 5 MG TABLET PO SCH ×2 (09:11→21:39)
[2021-12-21] MEDS: FUROSEMIDE 40 MG/4 ML INJECTABLE VIAL IVPUSH SCH (09:11)
[2021-12-21] MEDS: metoPROLOL SUCCINATE 25 MG TAB.SR.24H (FP) PO SCH (09:11)
[2021-12-21 09:13] LABS: CREATININE 1.5 mg/dL (0.55-1.3)
[2021-12-21 09:15] LABS: BILIRUBIN,TOTAL 1.6 mg/dL (0.2-1); TOT PROT 6.9 g/dl (6.4-8.2)
[2021-12-21] MEDS: SACUBITRIL/VALSARTAN 24 MG-26 MG TABLET PO SCH ×2 (09:57→21:39)
[2021-12-21] MEDS: ROSUVASTATIN CA 5 MG TABLET PO SCH (21:39)
[2021-12-22] MEDS: FUROSEMIDE 40 MG/4 ML INJECTABLE VIAL IVPUSH SCH (09:48)
[2021-12-22] MEDS: metoPROLOL SUCCINATE 25 MG TAB.SR.24H (FP) PO SCH (09:56)
[2021-12-22] MEDS: SACUBITRIL/VALSARTAN 24 MG-26 MG TABLET PO SCH ×2 (09:57→21:06)
[2021-12-22] MEDS: APIXABAN 5 MG TABLET PO SCH ×2 (09:57→21:05)
[2021-12-22] MEDS ORDERED: METOPROLOL TARTRATE 25 MG TABLET (FP) PO ONE (17:42)
[2021-12-22 18:38] LABS: CHLORIDE 101 mmol/L (98-107); SODIUM 134 mmol/L (136-145)
[2021-12-22 18:40] LABS: CALCIUM 8.9 mg/dL (8.5-10.1); GLUCOSE,RANDOM 171 mg/dL (74-106)
[2021-12-22] MEDS ORDERED: POTASSIUM CHLORIDE TABS 20 MEQ TABLET.ER (FP) PO ONE (18:40)
[2021-12-22 18:41] LABS: ALBUMIN 3.1 g/dl (3.4-5.0); ANION GAP 9 MMOL/L (8-16); BLOOD UREA NITROGEN 23.3 mg/dL (7-18); CO2 25 mmol/L (21-32)
[2021-12-22 18:43] LABS: SGPT/ALT 19 U/L (13-61)
[2021-12-22 18:44] LABS: CREATININE 1.4 mg/dL (0.55-1.3); SGOT/AST 28 U/L (15-37)
[2021-12-22 18:45] LABS: BILIRUBIN,TOTAL 1.4 mg/dL (0.2-1); TOT PROT 7.7 g/dl (6.4-8.2)
[2021-12-22 18:46] LABS: ALK PHOS 216 U/L (45-117)
[2021-12-22 20:30] LABS: MAGNESIUM 1.9 mg/dL (1.8-2.4)
[2021-12-22] MEDS: ROSUVASTATIN CA 5 MG TABLET PO SCH (21:05)
[2021-12-23] MEDS: FUROSEMIDE 40 MG/4 ML INJECTABLE VIAL IVPUSH SCH (09:28)
[2021-12-23] MEDS: APIXABAN 5 MG TABLET PO SCH ×2 (09:30→21:31)
[2021-12-23] MEDS: metoPROLOL SUCCINATE 25 MG TAB.SR.24H (FP) PO SCH (09:30)
[2021-12-23] MEDS: SACUBITRIL/VALSARTAN 24 MG-26 MG TABLET PO SCH ×2 (09:30→21:31)
[2021-12-23 19:36] VITALS: BMI 26.4
[2021-12-23] MEDS: ROSUVASTATIN CA 5 MG TABLET PO SCH (21:31)
[2021-12-24] MEDS: FUROSEMIDE 40 MG/4 ML INJECTABLE VIAL IVPUSH SCH (10:00)
[2021-12-24] MEDS: SACUBITRIL/VALSARTAN 24 MG-26 MG TABLET PO SCH ×2 (10:00→21:23)
[2021-12-24] MEDS: APIXABAN 5 MG TABLET PO SCH ×2 (10:00→21:22)
[2021-12-24] MEDS ORDERED: FUROSEMIDE 40 MG/4 ML INJECTABLE VIAL IVPUSH SCH (14:30)
[2021-12-24] MEDS: metoPROLOL SUCCINATE 25 MG TAB.SR.24H (FP) PO SCH (19:43)
[2021-12-24] MEDS: MAGNESIUM OXIDE 400 MG TABLET (FP) PO SCH (21:22)
[2021-12-24] MEDS: ROSUVASTATIN CA 5 MG TABLET PO SCH (21:22)
[2021-12-25] MEDS: FUROSEMIDE 40 MG TABLET (FP) PO SCH ×2 (05:49→14:08)
[2021-12-25 07:38] LABS: BASO % 0.7 % (0-2.0); EOS % 0.9 % (0-4.5); HEMATOCRIT 39.2 % (35.4-49); HEMOGLOBIN 12.2 GM/dL (11.7-16.9); LYMPH % 20.5 % (8-40); MCH 27.4 pg (25.7-33.7); MCHC 31.1 g/dl (32.0-35.9); MEAN CELL VOLUME 88.2 fl (80-96); MEAN PLT VOLUME 9.7 fl (7.5-11.1); MONO % 15.1 % (3.8-10.2); NEUT % 62.8 % (42.8-82.8); PLATELET COUNT 147 10^3/uL (134-434); RBC 4.45 M/mm3 (4.00-5.60); RDW 21.4 % (11.9-15.9); WHITE BLOOD COUNT 6.8 K/mm3 (4.0-10.0)
[2021-12-25 07:59] LABS: CALCIUM 9.4 mg/dL (8.5-10.1)
[2021-12-25 08:00] LABS: BLOOD UREA NITROGEN 32.2 mg/dL (7-18); MAGNESIUM 2.1 mg/dL (1.8-2.4)
[2021-12-25 08:03] LABS: CREATININE 1.4 mg/dL (0.55-1.3)
[2021-12-25 08:04] LABS: BILIRUBIN,TOTAL 1.7 mg/dL (0.2-1)
[2021-12-25 08:05] LABS: TOT PROT 7.4 g/dl (6.4-8.2)
[2021-12-25 09:15] VITALS: PULSE 83
[2021-12-25] MEDS: APIXABAN 5 MG TABLET PO SCH (09:36)
[2021-12-25] MEDS: SACUBITRIL/VALSARTAN 24 MG-26 MG TABLET PO SCH (09:37)
[2021-12-25] MEDS: MAGNESIUM OXIDE 400 MG TABLET (FP) PO SCH (09:38)
[2021-12-25 15:46] VITALS: BP 108/72; TEMP 97.8
== END 2021-12-25 17:24 | disposition short-term general hospital (02) | DRG 264 ==
LOC: JER 12:40 → JERBED 15:52 → J4W 12-21 01:45
PROVIDERS: ADMIT Internal Medicine; ATTEND Internal Medicine
PROC: 0JBR0ZZ Excision of Left Foot Subcutaneous Tissue and Fascia, Open Approach (ICD-10-PCS; principal; 2021-12-25)
DX: I13.0 Hypertensive heart and chronic kidney disease with heart failure and stage 1 through stage 4 chronic kidney disease, or unspecified chronic kidney disease (principal); I50.23 Acute on chronic systolic (congestive) heart failure; N17.9 Acute kidney failure, unspecified; L97.929 Non-pressure chronic ulcer of unspecified part of left lower leg with unspecified severity; E87.1 Hypo-osmolality and hyponatremia; I47.2 Ventricular tachycardia; I27.20 Pulmonary hypertension, unspecified; E11.22 Type 2 diabetes mellitus with diabetic chronic kidney disease; E11.51 Type 2 diabetes mellitus with diabetic peripheral angiopathy without gangrene; E11.621 Type 2 diabetes mellitus with foot ulcer; E11.649 Type 2 diabetes mellitus with hypoglycemia without coma; N18.9 Chronic kidney disease, unspecified; I25.119 Atherosclerotic heart disease of native coronary artery with unspecified angina pectoris; I42.8 Other cardiomyopathies
CPT/HCPCS: 15275; 36415; 71045-TC-FY; 80048; 80053; 81003; 82550; 82553; 82962; 83735; 83880; 84132; 84439; 84443; 84484; 85025; 93005; 93010; 93306-TC; 97116-GP; 97161-GP; 99285-25; C9803; Q4196; U0003; U0005